=== PATIENT | female | born 1935 | race Caucasian/White ===

== ENCOUNTER → 2016-10-10 | Outpatient (CLI) | payer MEDICARE, OTHER ==
[~2016-10-10] MED LIST: AMIT8CAP6 PO; ARIP1TAB12 PO; CALC1TAB53 PO; CALC625 PO; CENTTAB9 PO; CIPR-9 PO; CYAN1000P; CYAN1000P IM; ESTR.3 PO; ETOD400T PO; FIBE625T10 PO; FURO20 PO; FURO40TA PO; HUMI20KI SQ; HUMI40KI SC; KLOR20TA6 PO; LACTPOW; LEVO.075 PO; MELO7.5S PO; MIRA33504 PO; MIRT1TAB PO; ONETAB13; OYST500T77 PO; POLY119S PO; POTA75TA; POTA75TA2; QUET1TAB65 PO; REME15TA PO; SLOWTAB PO; URIB118C PO; VIIB20TA PO; VIIB40TA PO; WELC625T2 PO; ZETI10TA5 PO; ZIPR40 PO; ZOLP1SUB2 SL
[2016-10-10 16:44] LABS: BICARBONATE 27.2 MEQ/L (21.0-32.0); POTASSIUM 4.7 MEQ/L (3.5-5.1)
== END ==
LOC: PLAB 12:40
PROVIDERS: ATTEND Family Medicine
DX: R60.9 Edema, unspecified (principal); R30.0 Dysuria
CPT/HCPCS: 36415; 80048

== ENCOUNTER 2016-10-21 20:09 | Emergency (ER) | payer MEDICARE, OTHER ==
[~2016-10-21] VITALS: Ht 167.6 cm; Wt 90.0 kg
[~2016-10-21 20:09] MED LIST changes: -ARIP1TAB12 PO; -CALC1TAB53 PO; -CIPR-9 PO; -CYAN1000P IM; -FIBE625T10 PO; -FURO40TA PO; -HUMI20KI SQ; -LACTPOW; -MIRA33504 PO; -MIRT1TAB PO; -ONETAB13; -POTA75TA; -POTA75TA2; -URIB118C PO; -VIIB40TA PO; -ZOLP1SUB2 SL
[2016-10-21 20:20] VITALS: RESP 18; O2SAT 98
[2016-10-21 20:22] VITALS: BP 160/62; PULSE 94; RESP 18; TEMP 98.1; O2SAT 99
[2016-10-21] MEDS ORDERED: SODIUM CHLORIDE 0.9% FLUSH 5 ML FLUSH IVF PRN (20:45)
--- NOTE | 2016-10-21 20:52 | PD ---
HPI . Right side pain Chief Complaint: Edema Time Seen by Provider: 20:36 Travel History International Travel<30 days: No Contact w/Intl Traveler<30days: No Traveled to known affect area: No History of Present Illness HPI The patient presents with several complaints. Her chief complaint to me was right side pain. It started today. It hurts to move. She states that she feels unusually cold. She denies any associated fever, vomiting, appetite change. She does report difficulty passing her urine today. She reports hesitancy. She further reports a recent history of impaction. She states that she was disimpacted earlier this week. She also states a new diagnosis of lymphedema. [facility] Past Medical History Arthritis: Yes Asthma: Yes Autoimmune Disease: No Anxiety: Yes Depression: Yes Heart Rhythm Problems: Yes (MITRAL VALVE PROLAPSE) Cancer: No Cardiovascular Problems: Yes High Cholesterol: Yes Chemotherapy: No Chest Pain: Yes (this admit) Congestive Heart Failure: No COPD: No Cerebrovascular Accident: No Diminished Hearing: No Endocrine: No GERD: No Genitourinary: Yes Hiatal Hernia: No Immune Disorder: No Kidney Stones: Yes (3 or 4 months ago) Medical other: Yes (LYMPHADEMA) Neurologic: Yes (SPINAL STENOSIS) Psychiatric: Yes Reproductive: No Respiratory: Yes Migraines: No Radiation Therapy: No Renal Failure: No Seizures: No Sickle Cell Disease: No Sleep Apnea: No Thyroid Disease: Yes (HYPOTHYROIDISM) Ulcer: No Tetanus Vaccination: Unknown Influenza Vaccination: Yes ?: Not Menopausal: Yes Past Surgical History AICD: No Appendectomy: Yes Arteriovenous Shunt: No Cardiac Surgery: No Genitourinary Surgery: Yes (BLADDER SUSPENSION) Gynecologic Surgery: Yes (BLADDER SUSPENSION) Hysterectomy: Yes Insulin Pump: No Joint Replacement: Yes (BILATERAL KNEE) Neurologic Surgery: No Pacemaker: No Thoracic Surgery: No Tonsillectomy: Yes Other Surgery: Yes Social History Alcohol Use: No Tobacco Use: No Substance Use: No Allergies-Medications (Allergen,Severity, Reaction): Coded Allergies: Aspirin (Verified Allergy, Intermediate, Hives, 10/21/16) Cortisone (Verified Allergy, Mild, "IT MAKES ME NUTS", 10/21/16) Reported Meds & Prescriptions Reported Meds & Active Scripts Active Reported Mirtazapine 7.5 Mg Tab 7.5 Mg PO HS Zolpidem (Zolpidem Tartrate) 1.75 Mg Sub 1.75 Mg SL HS PRN Aripiprazole 10 Mg Tab 10 Mg PO DAILY Etodolac 400 Mg Tab 400 Mg PO BID Take with food. Welchol (Colesevelam HCl) 625 Mg Tab 1,875 Mg PO BID Zetia (Ezetimibe) 10 Mg Tab 10 Mg PO DAILY Potassium 75 Mg Tab 40 Premarin (Estrogens Conjugated) 0.3 Mg Tab 0.3 Mg PO DAILY Synthroid (Levothyroxine Sodium) 75 Mcg Tab 75 Mcg PO DAILY Fiber Tabs (Calcium Polycarbophil) 625 Mg Tab 625 Mg PO BID PRN Miralax Powder (Polyethylene Glycol 3350 Powder) 17 Gm Powd Gm PO DAILY Mix and dissolve one measuring cap-ful (17 grams) in water or juice. Humira 2-Pack Inj (Adalimumab 2-Pack Inj) 20 Mg/0.4 Ml Syr 20 Mg SQ DIRECTED Amitiza (Lubiprostone) 8 Mcg Cap 24 Mcg PO BID Furosemide 40 Mg Tab 40 Mg PO EVERY OTHER DAY Viibryd (Vilazodone) 40 Mg Tab 40 Mg PO DAILY Review of Systems General / Constitutional: Positive: Chills Gastrointestinal: Positive: Abdominal Pain, Constipation, No: Nausea, Vomiting , Loss of Appetite Genitourinary: Positive: Hesitancy Musculoskeletal: Positive: Edema Physical Exam Narrative GENERAL: Elderly woman with a flat affect. SKIN: Warm and dry. She's got a Band-Aid on her nose. HEAD: Atraumatic. Normocephalic. EYES: Pupils equal and round. ENT: No nasal bleeding or discharge. Mucous membranes pink and moist. NECK: Trachea midline. Neck is supple. CARDIOVASCULAR: Regular rate and rhythm. Heart sounds are normal. RESPIRATORY: No accessory muscle use. Lungs are clear with full air movement throughout. GASTROINTESTINAL: Abdomen soft. She does have some tenderness in her right lower abdomen. Nondistended. MUSCULOSKELETAL: No obvious deformities. Long ANNABELLE hose in place. NEUROLOGICAL: Awake and alert. No obvious cranial nerve deficits. Motor grossly within normal limits. Normal speech. PSYCHIATRIC: Appropriate mood. Flat affect; insight and judgment normal. Data Data Last Documented VS Vital Signs Date Time Temp Pulse Resp B/P Pulse Ox O2 Delivery O2 Flow Rate FiO2 10/21/16 20:39 94 18 99 Room Air 10/21/16 20:22 98.1 160/62 Orders Complete Blood Count With Diff (10/21/16 20:42) Comprehensive Metabolic Panel (10/21/16 20:42) Lactic Acid (10/21/16 20:42) Urinalysis - C+S If Indicated (10/21/16 20:42) Ct Abd/Pel W Iv Contrast(Rout) (10/21/16 20:42) Iv Access Insert/Monitor (10/21/16 20:42) Ecg Monitoring (10/21/16 20:42) Oximetry (10/21/16 20:42) Sodium Chloride 0.9% Flush (Ns Flush) (10/21/16 20:45) Electrocardiogram (10/21/16 20:42) Chest, Single Ap (10/21/16 20:42) B-Type Natriuretic Peptide (10/21/16 20:42) Cath For Specimen (10/21/16 20:42) Iohexol 350 Inj (Omnipaque 350 Inj) (10/21/16 22:46) Labs Laboratory Tests Test 10/21/16 10/21/16 20:30 21:35 Urine Color YELLOW Urine Turbidity CLEAR Urine pH 6.0 Urine Specific [place] 1.015 Urine Protein NEG mg/dL Urine Glucose (UA) NEG mg/dL Urine Ketones NEG mg/dL Urine Occult Blood NEG Urine Nitrite NEG Urine Bilirubin NEG Urine Leukocyte Esterase NEG Urine RBC 0-2 /hpf Urine WBC 0-2 /hpf Urine Squamous Epithelial 6-8 /hpf Cells Urine Bacteria FEW /hpf Microscopic Urinalysis Comment CULT NOT INDICATED White Blood Count 4.8 TH/MM3 Red Blood Count 4.71 MIL/MM3 Hemoglobin 14.4 GM/DL Hematocrit 42.7 % Mean Corpuscular Volume 90.7 FL Mean Corpuscular Hemoglobin 30.6 PG Mean Corpuscular Hemoglobin 33.8 % Concent Red Cell Distribution Width 12.5 % Platelet Count 119 TH/MM3 Mean Platelet Volume 12.5 FL Neutrophils (%) (Auto) 57.3 % Lymphocytes (%) (Auto) 27.6 % Monocytes (%) (Auto) 13.0 % Eosinophils (%) (Auto) 1.4 % Basophils (%) (Auto) 0.7 % Neutrophils # (Auto) 2.8 TH/MM3 Lymphocytes # (Auto) 1.3 TH/MM3 Monocytes # (Auto) 0.6 TH/MM3 Eosinophils # (Auto) 0.1 TH/MM3 Basophils # (Auto) 0.0 TH/MM3 CBC Comment DIFF FINAL Differential Comment Sodium Level 144 MEQ/L Potassium Level 3.9 MEQ/L Chloride Level 109 MEQ/L Carbon Dioxide Level 28.6 MEQ/L Anion Gap 6 MEQ/L Blood Urea Nitrogen 17 MG/DL Creatinine 0.85 MG/DL Estimat Glomerular Filtration 65 ML/MIN Rate Random Glucose 89 MG/DL Lactic Acid Level 0.9 mmol/L Calcium Level 9.8 MG/DL Total Bilirubin 0.3 MG/DL Aspartate Amino Transf 27 U/L (AST/SGOT) Alanine Aminotransferase 35 U/L (ALT/SGPT) Alkaline Phosphatase 56 U/L B-Type Natriuretic Peptide 53 PG/ML Total Protein 8.5 GM/DL Albumin 4.0 GM/DL [facility] Medical Decision Making Medical Screen Exam Complete: Yes Emergency Medical Condition: Yes Interpretation(s) EKG shows a normal sinus rhythm. No ST segment elevation or depression. Poor R -wave progression. Differential Diagnosis Differential diagnosis of abdominal pain includes but is not limited to gastritis, pancreatitis, hepatitis, gastroenteritis, gallbladder disease, constipation, urinary retention, UTI, peptic ulcer disease, diverticulitis or appendicitis Narrative Course Allergies Coded Allergies Type Severity Reaction Last Updated Verified Aspirin Allergy Intermediate Hives 10/21/16 Yes Cortisone Allergy Mild "IT MAKES ME NUTS" 10/21/16 Yes Active Scripts Medications Dose Route/Sig Days Date Category Dose Instructions Mirtazapine 7.5 Mg Tab 7.5 Mg PO HS 10/21/16 Reported Zolpidem (Zolpidem Tartrate) 1.75 Mg Sub 1.75 Mg SL HS PRN 10/21/16 Reported Aripiprazole 10 Mg Tab 10 Mg PO DAILY 10/21/16 Reported Etodolac 400 Mg Tab 400 Mg PO BID 10/21/16 Reported Take with food. Welchol (Colesevelam HCl) 625 Mg Tab 1,875 Mg PO BID 10/21/16 Reported Zetia (Ezetimibe) 10 Mg Tab 10 Mg PO DAILY 10/21/16 Reported Potassium 75 Mg Tab 40 10/21/16 Reported Premarin (Estrogens Conjugated) 0.3 Mg Tab 0.3 Mg PO DAILY 10/21/16 Reported Synthroid (Levothyroxine Sodium) 75 Mcg Tab 75 Mcg PO DAILY 10/21/16 Reported Fiber Tabs (Calcium Polycarbophil) 625 Mg Tab 625 Mg PO BID PRN 10/21/16 Reported Miralax Powder (Polyethylene Glycol 3350 Powder) 17 Gm Powd Gm PO DAILY 10/21/16 Reported Mix and dissolve one measuring cap-ful (17 grams) in water or juice. Humira 2-Pack Inj (Adalimumab 2-Pack Inj) 20 Mg/0.4 Ml Syr 20 Mg SQ DIRECTED 10/21/16 Reported Amitiza (Lubiprostone) 8 Mcg Cap 24 Mcg PO BID 10/21/16 Reported Furosemide 40 Mg Tab 40 Mg PO EVERY OTHER DAY 10/21/16 Reported Viibryd (Vilazodone) 40 Mg Tab 40 Mg PO DAILY 10/21/16 Reported Patient presents with multiple issues. The most worrisome to me is the abdominal pain. Last Impressions Chest X-Ray 10/21/162041 Signed Impressions: Service Date/Time: Friday, October 21, 2016 20:47 - CONCLUSION: The lungs are clear. Dat Zaragoza MD CBC & BMP Diagram 10/21/16 21:35 Chest x-ray was independently viewed by me. UA is negative. Last Impressions Chest X-Ray 10/21/162041 Signed Impressions: Service Date/Time: Friday, October 21, 2016 20:47 - CONCLUSION: The lungs are clear. Dat Zaragoza MD Abdomen/Pelvis CT 10/21/162041 Signed Impressions: Service Date/Time: Friday, October 21, 2016 22:25 - CONCLUSION: 1. 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 2. No dilated loops of small or large bowel. Dat Zaragoza MD Patient has no evidence of intra-abdominal catastrophe. She has no evidence of pulmonary edema. She should continue her current therapy. Diagnosis Primary Impression: Peripheral edema Additional Impression: Abdominal pain Qualified Code: R10.31 - Right lower quadrant abdominal pain Patient Instructions: General Instructions, Leg Edema (ED) Disposition: 01 DISCHARGE HOME Condition: Stable Rosemarie Alicea MD Oct 21, 2016 20:52
[2016-10-21] MEDS ORDERED: ETOD400T PO (20:57)
[2016-10-21] MEDS ORDERED: HUMI20KI SQ (20:57)
[2016-10-21] MEDS ORDERED: POTA75TA2 (20:57)
[2016-10-21] MEDS ORDERED: WELC625T2 PO (20:57)
[2016-10-21] MEDS ORDERED: MIRA33504 PO (20:57)
[2016-10-21] MEDS ORDERED: FIBE625T10 PO (20:57)
[2016-10-21] MEDS ORDERED: VIIB40TA PO (20:57)
[2016-10-21] MEDS ORDERED: ZETI10TA5 PO (20:57)
[2016-10-21] MEDS ORDERED: LEVO.075 PO (20:57)
[2016-10-21] MEDS ORDERED: MIRT1TAB PO (20:57)
[2016-10-21] MEDS ORDERED: ESTR.3 PO (20:57)
[2016-10-21] MEDS ORDERED: AMIT8CAP6 PO (20:57)
[2016-10-21] MEDS ORDERED: ZOLP1SUB2 SL (20:57)
[2016-10-21] MEDS ORDERED: FURO40TA PO (20:57)
[2016-10-21] MEDS ORDERED: ARIP1TAB12 PO (20:57)
[2016-10-21] MEDS ORDERED: POTA75TA (20:57)
--- NOTE | 2016-10-21 21:04 | RADHPO ---
EXAM DATE/TIME: 10/21/2016 20:47 [facility] COMPARISON: CHEST SINGLE AP, January 06, 2016, 14:43. INDICATIONS : Pain on the right side of body. MEDICAL HISTORY : Renal calculi. SURGICAL HISTORY : Hysterectomy. Appendectomy. Tonsillectomy. ENCOUNTER: Initial ACUITY: 1 day PAIN SCORE: 8/10 LOCATION: Right thorax. FINDINGS: A single view of the chest demonstrates the lungs to be symmetrically aerated without evidence of mas s, infiltrate or effusion. No evidence of pneumothorax. The cardiomediastinal contours are unremark able. Osseous structures are intact. CONCLUSION: The lungs are clear. Dat Zaragoza MD on October 21, 2016 at 21:02 Board Certified Radiologist. This report was verified electronically.
[2016-10-21 21:46] LABS: BLOOD, URINE NEG (NEG); GLUCOSE,URINE NEG (NEG); KETONE, URINE NEG (NEG); NITRITE,URINE NEG (NEG)
[2016-10-21 21:48] LABS: AUTOMATED NEUTROPHIL # 2.8 TH/MM3 (1.8-7.7); BASOPHIL % 0.7 % (0.0-2.0); EOSINOPHIL # 0.1 TH/MM3 (0-0.4); EOSINOPHIL % 1.4 % (0.0-4.0); HEMATOCRIT 42.7 % (35.0-46.0); LYMPH % 27.6 % (9.0-44.0); LYMPHOCYTE # 1.3 TH/MM3 (1.0-4.8); MEAN CELL VOLUME 90.7 FL (80.0-100.0); MEAN CORPUSCULAR HEMOGLOBIN 30.6 PG (27.0-34.0); MEAN CORPUSCULAR HGB CONC 33.8 % (32.0-36.0); NEUT % 57.3 % (16.0-70.0); PLATELET COUNT 119 TH/MM3 (150-450); RED BLOOD COUNT 4.71 MIL/MM3 (4.00-5.30); RED CELL DISTRIBUTION WIDTH 12.5 % (11.6-17.2); WHITE BLOOD COUNT 4.8 TH/MM3 (4.0-11.0)
[2016-10-21 21:49] LABS: HEMO FLAGS DIFF FINAL
[2016-10-21 21:52] LABS: URINE COLOR YELLOW (YELLW/STRAW)
[2016-10-21 21:53] LABS: BACTERIA, URINE FEW /hpf; COMMENT (UR) CULT NOT INDICATED; CULTURE IF INDICATED CULT NOT INDICATED; RBC, URINE 0-2 /hpf (0-3); WBC, URINE 0-2 /hpf (0-5)
[2016-10-21 21:54] LABS: CHLORIDE 109 MEQ/L (98-107); POTASSIUM 3.9 MEQ/L (3.5-5.1); SODIUM (NA) 144 MEQ/L (136-145)
[2016-10-21 21:57] LABS: ANION GAP 6 MEQ/L (5-15); BICARBONATE 28.6 MEQ/L (21.0-32.0); BLOOD UREA NITROGEN 17 MG/DL (7-18)
[2016-10-21 22:00] LABS: ALT (GPT) 35 U/L (10-53)
[2016-10-21 22:01] LABS: AST (GOT) 27 U/L (15-37); GLOMERULAR FILTRATION RATE 65 ML/MIN (>89)
[2016-10-21 22:02] LABS: TOTAL BILIRUBIN ADULT 0.3 MG/DL (0.2-1.0)
[2016-10-21 22:03] LABS: ALKALINE PHOSPHATASE 56 U/L (45-117)
[2016-10-21 22:40] VITALS: BP 122/52; PULSE 81; RESP 18; O2SAT 97
[2016-10-21] MEDS ORDERED: IOHEXOL 350 MG/ML 10 ML VIAL (for RAD DIAG) IV ONE (22:46)
--- NOTE | 2016-10-21 23:04 | RADHPO ---
EXAM DATE/TIME: 10/21/2016 22:25 [facility] COMPARISON: No previous studies available for comparison. INDICATIONS : Right sided abdominal pain. IV CONTRAST: 96 cc Omnipaque 350 (iohexol) IV ORAL CONTRAST: No oral contrast ingested. RADIATION DOSE: 19.16 CTDIvol (mGy) MEDICAL HISTORY : Renal calculi. Mitral valve prolapse. SURGICAL HISTORY : Appendectomy. Hysterectomy. ENCOUNTER: Initial ACUITY: 1 day PAIN SCALE: 6/10 LOCATION: Right abdomen. TECHNIQUE: Volumetric scanning of the abdomen and pelvis was performed. Using automated exposure control and ad justment of the mA and/or kV according to patient size, radiation dose was kept as low as reasonably achievable to obtain optimal diagnostic quality images. FINDINGS: LOWER LUNGS: The visualized lower lungs are clear. LIVER: Homogeneous density without lesion. There is no dilation of the biliary tree. No calcified gallston es. SPLEEN: Normal size without lesion. PANCREAS: Within normal limits. KIDNEYS: Normal in size and shape. There is no mass or hydronephrosis. In the lower pole collecting system l eft kidney, there is a elongated calcification measuring 5 x 15 mm without dilation of the collecting system. ADRENAL GLANDS: Within normal limits. VASCULAR: There is no aortic aneurysm. BOWEL/MESENTERY: No dilated loops of small or large bowel. ABDOMINAL WALL: Within normal limits. RETROPERITONEUM: There is no lymphadenopathy. BLADDER: No wall thickening or mass. REPRODUCTIVE: Within normal limits. INGUINAL: There is no lymphadenopathy or hernia. MUSCULOSKELETAL: Within normal limits for patient age. CONCLUSION: 1. 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 2. No dilated loops of small or large bowel. Dat Zaragoza MD on October 21, 2016 at 22:58 Board Certified Radiologist. This report was verified electronically.
[2016-10-21 23:35] VITALS: BP 119/60; PULSE 79; RESP 18; O2SAT 97
--- NOTE | 2016-10-22 13:15 | EKG ---
Date Performed: 10/21/2016 Time Performed: 21:11:48 PTAGE: 80 years EKG: Sinus rhythm Low QRS voltages in precordial leads Compared to prior tracing no significant change Borderline ECG PREVIOUS TRACING : 01/07/2016 09.15 DOCTOR: Сергей Guy Interpretating Date/Time 10/22/2016 13:12:23
== END 2016-10-21 23:59 | disposition home or self-care (01) ==
LOC: PHED 20:09
DX: R60.0 Localized edema (principal); R10.31 Right lower quadrant pain; R39.11 Hesitancy of micturition; J45.909 Unspecified asthma, uncomplicated; E78.00 Pure hypercholesterolemia, unspecified; R94.31 Abnormal electrocardiogram [ECG] [EKG]
CPT/HCPCS: 71010; 74177; 80053; 81001; 83605; 83880; 85025; 93005; 99284; Q9967

== ENCOUNTER 2016-11-04 12:53 | Emergency (ER) | payer MEDICARE, OTHER ==
[~2016-11-04 12:53] MED LIST changes: +ARIP1TAB12 PO; -CALC625 PO; -CENTTAB9 PO; -CYAN1000P; +FIBE625T10 PO; -FURO20 PO; +FURO40TA PO; +HUMI20KI SQ; -HUMI40KI SC; -KLOR20TA6 PO; -MELO7.5S PO; +MIRA33504 PO; +MIRT1TAB PO; -OYST500T77 PO; -POLY119S PO; +POTA75TA; -QUET1TAB65 PO; -REME15TA PO; -SLOWTAB PO; -VIIB20TA PO; +VIIB40TA PO; -ZIPR40 PO; +ZOLP1SUB2 SL
[2016-11-04 13:13] VITALS: BP 152/68; PULSE 103; RESP 18; TEMP 98.4; O2SAT 97
[2016-11-04] MEDS ORDERED: SODIUM CHLORID 0.9% 500 ML INJ 500 ML IV ONE (13:15)
[2016-11-04] MEDS ORDERED: SODIUM CHLORIDE 0.9% FLUSH 5 ML FLUSH IVF PRN (13:15)
[2016-11-04] MEDS ORDERED: ONDANSETRON HCL 4 MG/2 ML VIAL IVP ONE (13:15)
--- NOTE | 2016-11-04 13:18 | PD ---
HPI Chief Complaint: General Weakness Time Seen by Provider: 13:01 Travel History International Travel<30 days: No Contact w/Intl Traveler<30days: No Traveled to known affect area: No History of Present Illness HPI The patient is a 80-year-old female who presents to the emergency department via EMS from [place], [place] for generalized weakness. The patient has a history of generalized weakness, is currently "homebound "according to the and receives home health care. The patient's primary physician is Dr. Kathy Scales. The patient is able to ambulate with the assistance of a walker at home, but has difficulty getting from a sitting to standing position. The patient states she was using the restroom at one end of the house, her was on the other end of the house, and she was unable to get up off of the toilet. The patient states she finally called out for her was able to stand, however, began "shaking "with her upper and lower extremities. The patient felt like she was going to fall and her had to help her to the ground. Initially, fire rescue was called to the house for a lift assist, however, they stated the patient needed to be evaluated secondary to her generalized weakness. The patient does complain of mild dizziness and lightheadedness, worse with sitting upright and standing and slightly improved with sitting and lying supine. The patient states she has been eating and drinking without difficulty, but has been taking Lasix recently for lower extremity edema. The patient denies any headache, chest pain, shortness of breath, but does note intermittent nausea. The patient also notes intermittent right sided flank pain secondary to history of large kidney stone. PFSH Past Medical History Arthritis: Yes Asthma: Yes Autoimmune Disease: No Anxiety: Yes Depression: Yes Heart Rhythm Problems: Yes (MITRAL VALVE PROLAPSE) Cancer: No Cardiovascular Problems: Yes (MITRAL VALVE PROLAPSE) High Cholesterol: Yes Chemotherapy: No Chest Pain: Yes (this admit) Congestive Heart Failure: No COPD: No Cerebrovascular Accident: No Diminished Hearing: No Endocrine: No GERD: No Genitourinary: Yes Hiatal Hernia: No Immune Disorder: No Kidney Stones: Yes (10 MM LEFT KIDNEY) Medical other: Yes (LYMPHEDEMA) Neurologic: Yes (SPINAL STENOSIS) Psychiatric: Yes Reproductive: No Respiratory: Yes Migraines: No Radiation Therapy: No Renal Failure: No Seizures: No Sickle Cell Disease: No Sleep Apnea: No Thyroid Disease: Yes (HYPOTHYROIDISM) Ulcer: No Menopausal: Yes Past Surgical History AICD: No Appendectomy: Yes Arteriovenous Shunt: No Cardiac Surgery: No Genitourinary Surgery: Yes (BLADDER SUSPENSION) Gynecologic Surgery: Yes (BLADDER SUSPENSION) Hysterectomy: Yes (TOTAL) Insulin Pump: No Joint Replacement: Yes (BILATERAL KNEE) Neurologic Surgery: No Pacemaker: No Thoracic Surgery: No Tonsillectomy: Yes Other Surgery: Yes Social History Alcohol Use: No Tobacco Use: No Substance Use: No Allergies-Medications (Allergen,Severity, Reaction): Coded Allergies: Aspirin (Verified Allergy, Intermediate, Hives, 11/04/16) Cortisone (Verified Allergy, Mild, "IT MAKES ME NUTS", 11/04/16) Reported Meds & Prescriptions Reported Meds & Active Scripts Active Reported Mirtazapine 7.5 Mg Tab 7.5 Mg PO HS Zolpidem (Zolpidem Tartrate) 1.75 Mg Sub 1.75 Mg SL HS PRN Aripiprazole 10 Mg Tab 10 Mg PO DAILY Etodolac 400 Mg Tab 400 Mg PO BID Take with food. Welchol (Colesevelam HCl) 625 Mg Tab 1,875 Mg PO BID Zetia (Ezetimibe) 10 Mg Tab 10 Mg PO DAILY Potassium 75 Mg Tab 40 Premarin (Estrogens Conjugated) 0.3 Mg Tab 0.3 Mg PO DAILY Synthroid (Levothyroxine Sodium) 75 Mcg Tab 75 Mcg PO DAILY Fiber Tabs (Calcium Polycarbophil) 625 Mg Tab 625 Mg PO BID PRN Miralax Powder (Polyethylene Glycol 3350 Powder) 17 Gm Powd Gm PO DAILY Mix and dissolve one measuring cap-ful (17 grams) in water or juice. Humira 2-Pack Inj (Adalimumab 2-Pack Inj) 20 Mg/0.4 Ml Syr 20 Mg SQ DIRECTED Amitiza (Lubiprostone) 8 Mcg Cap 24 Mcg PO BID Furosemide 40 Mg Tab 40 Mg PO EVERY OTHER DAY Viibryd (Vilazodone) 40 Mg Tab 40 Mg PO DAILY Review of Systems Except as stated in HPI: all other systems reviewed are Neg General / Constitutional: No: Fever HENT: Positive: Lightheadedness Cardiovascular: No: Chest Pain or Discomfort Respiratory: No: Shortness of Breath Gastrointestinal: Positive: Nausea, No: Vomiting, Diarrhea, Abdominal Pain Genitourinary: Positive: Flank Pain (occasional right sided flank pain secondary to history of kidney stone) Musculoskeletal: Positive: Weakness, Edema Skin: No Rash Neurologic: Positive: Weakness, Dizziness Physical Exam Narrative GENERAL: Awake, alert, pleasant 80 year-old female who appears her stated age and is in no acute respiratory distress. SKIN: Warm and dry. HEAD: Atraumatic. Normocephalic. EYES: Pupils equal and round. No scleral icterus. No injection or drainage. ENT: No nasal bleeding or discharge. Slightly dry mucous membranes. NECK: Trachea midline. No JVD. CARDIOVASCULAR: Regular, tachycardic with a heart rate of 102. RESPIRATORY: No accessory muscle use. Clear to auscultation. Breath sounds equal bilaterally. GASTROINTESTINAL: Abdomen soft, non-tender, nondistended. No rebound tenderness. MUSCULOSKELETAL: Well-healed scar over the knees bilaterally. Mild chronic venous stasis changes lower extremities with mild edema. NEUROLOGICAL: Awake and alert. No obvious cranial nerve deficits. Motor grossly within normal limits. Normal speech. PSYCHIATRIC: Appropriate mood and affect; insight and judgment normal. Data Data Last Documented VS Vital Signs Date Time Temp Pulse Resp B/P Pulse Ox O2 Delivery O2 Flow Rate FiO2 11/04/16 13:59 95 18 131/59 102 18 134/60 101 18 140/63 11/04/16 13:13 97 Room Air 11/04/16 13:13 98.4 Orders Electrocardiogram (11/04/16 13:11) Complete Blood Count With Diff (11/04/16 13:11) Comprehensive Metabolic Panel (11/04/16 13:11) Magnesium (Mg) (11/04/16 13:11) Ckmb (Isoenzyme) Profile (11/04/16 13:11) Troponin I (11/04/16 13:11) Urinalysis - C+S If Indicated (11/04/16 13:11) Chest, Single Ap (11/04/16 13:11) Ecg Monitoring (11/04/16 13:11) Iv Access Insert/Monitor (11/04/16 13:11) Oximetry (11/04/16 13:11) Ondansetron Inj (Zofran Inj) (11/04/16 13:15) Sodium Chloride 0.9% Flush (Ns Flush) (11/04/16 13:15) Orthostatic Vital Signs (11/04/16 13:11) Sodium Chlorid 0.9% 500 Ml Inj (Ns 500 M (11/04/16 13:15) Cath For Specimen (11/04/16 13:14) Lactic Acid (11/04/16 13:19) Labs Laboratory Tests Test 11/04/16 11/04/16 11/04/16 13:16 13:30 13:31 White Blood Count 5.2 TH/MM3 Red Blood Count 4.03 MIL/MM3 Hemoglobin 12.4 GM/DL Hematocrit 36.6 % Mean Corpuscular Volume 90.8 FL Mean Corpuscular Hemoglobin 30.8 PG Mean Corpuscular Hemoglobin 33.9 % Concent Red Cell Distribution Width 13.4 % Platelet Count 106 TH/MM3 Mean Platelet Volume 11.7 FL Neutrophils (%) (Auto) 62.8 % Lymphocytes (%) (Auto) 23.9 % Monocytes (%) (Auto) 11.4 % Eosinophils (%) (Auto) 1.5 % Basophils (%) (Auto) 0.4 % Neutrophils # (Auto) 3.2 TH/MM3 Lymphocytes # (Auto) 1.2 TH/MM3 Monocytes # (Auto) 0.6 TH/MM3 Eosinophils # (Auto) 0.1 TH/MM3 Basophils # (Auto) 0.0 TH/MM3 CBC Comment DIFF FINAL Differential Comment Sodium Level 141 MEQ/L Potassium Level 4.2 MEQ/L Chloride Level 108 MEQ/L Carbon Dioxide Level 25.5 MEQ/L Anion Gap 8 MEQ/L Blood Urea Nitrogen 15 MG/DL Creatinine 0.85 MG/DL Estimat Glomerular Filtration 65 ML/MIN Rate Random Glucose 94 MG/DL Calcium Level 9.1 MG/DL Magnesium Level 2.0 MG/DL Total Bilirubin 0.5 MG/DL Aspartate Amino Transf 19 U/L (AST/SGOT) Alanine Aminotransferase 26 U/L (ALT/SGPT) Alkaline Phosphatase 48 U/L Total Creatine Kinase 43 U/L Troponin I LESS THAN 0.02 NG/ML Total Protein 7.2 GM/DL Albumin 3.6 GM/DL Urine Color LIGHT-YELLOW Urine Turbidity CLEAR Urine pH 7.0 Urine Specific [place] 1.006 Urine Protein NEG mg/dL Urine Glucose (UA) NEG mg/dL Urine Ketones NEG mg/dL Urine Occult Blood NEG Urine Nitrite NEG Urine Bilirubin NEG Urine Urobilinogen LESS THAN 2.0 MG/DL Urine Leukocyte Esterase NEG Urine RBC 1 /hpf Urine WBC 1 /hpf Urine Squamous Epithelial <1 /hpf Cells Urine Bacteria OCC /hpf Urine Hyaline Casts 5 /lpf Microscopic Urinalysis Comment CULT NOT INDICATED Lactic Acid Level 1.3 mmol/L MDM Medical Decision Making Medical Screen Exam Complete: Yes Emergency Medical Condition: Yes Medical Record Reviewed: Yes Interpretation(s) EKG reveals normal sinus rhythm with a rate in 93. No ischemic changes or ectopy noted. Last Impressions Chest X-Ray 11/04/16 1311 Signed Impressions: Service Date/Time: Friday, November 04, 2016 13:21 - CONCLUSION: No acute disease. Slight elevation left hemidiaphragm. Cody Buckley MD Laboratory Tests Test 11/04/16 11/04/16 11/04/16 13:16 13:30 13:31 White Blood Count 5.2 TH/MM3 Red Blood Count 4.03 MIL/MM3 Hemoglobin 12.4 GM/DL Hematocrit 36.6 % Mean Corpuscular Volume 90.8 FL Mean Corpuscular Hemoglobin 30.8 PG Mean Corpuscular Hemoglobin 33.9 % Concent Red Cell Distribution Width 13.4 % Platelet Count 106 TH/MM3 Mean Platelet Volume 11.7 FL Neutrophils (%) (Auto) 62.8 % Lymphocytes (%) (Auto) 23.9 % Monocytes (%) (Auto) 11.4 % Eosinophils (%) (Auto) 1.5 % Basophils (%) (Auto) 0.4 % Neutrophils # (Auto) 3.2 TH/MM3 Lymphocytes # (Auto) 1.2 TH/MM3 Monocytes # (Auto) 0.6 TH/MM3 Eosinophils # (Auto) 0.1 TH/MM3 Basophils # (Auto) 0.0 TH/MM3 CBC Comment DIFF FINAL Differential Comment Sodium Level 141 MEQ/L Potassium Level 4.2 MEQ/L Chloride Level 108 MEQ/L Carbon Dioxide Level 25.5 MEQ/L Anion Gap 8 MEQ/L Blood Urea Nitrogen 15 MG/DL Creatinine 0.85 MG/DL Estimat Glomerular Filtration 65 ML/MIN Rate Random Glucose 94 MG/DL Calcium Level 9.1 MG/DL Magnesium Level 2.0 MG/DL Total Bilirubin 0.5 MG/DL Aspartate Amino Transf 19 U/L (AST/SGOT) Alanine Aminotransferase 26 U/L (ALT/SGPT) Alkaline Phosphatase 48 U/L Total Creatine Kinase 43 U/L Troponin I LESS THAN 0.02 NG/ML Total Protein 7.2 GM/DL Albumin 3.6 GM/DL Urine Color LIGHT-YELLOW Urine Turbidity CLEAR Urine pH 7.0 Urine Specific [place] 1.006 Urine Protein NEG mg/dL Urine Glucose (UA) NEG mg/dL Urine Ketones NEG mg/dL Urine Occult Blood NEG Urine Nitrite NEG Urine Bilirubin NEG Urine Urobilinogen LESS THAN 2.0 MG/DL Urine Leukocyte Esterase NEG Urine RBC 1 /hpf Urine WBC 1 /hpf Urine Squamous Epithelial <1 /hpf Cells Urine Bacteria OCC /hpf Urine Hyaline Casts 5 /lpf Microscopic Urinalysis Comment CULT NOT INDICATED Lactic Acid Level 1.3 mmol/L Differential Diagnosis Differential diagnosis includes dehydration, orthostatic hypotension, vasovagal syncope, arrhythmia, electrolyte abnormality, deconditioning, UTI, pneumonia, sepsis. Narrative Course IV was established, labs were drawn and sent, and the patient was placed on cardiac telemetry monitoring and continuous pulse oximetry monitoring. EKG was ordered and interpreted. Chest x-ray was ordered. Orthostatic vital signs were obtained and the patient was administered 500 cc of normal saline. UA was sent to lab. UA was negative. Chest x-ray was clear. White count is normal. Hemoglobin/hematocrit are unremarkable. Patient's heart rate came down to 90 with IV fluids. Patient had improvement of her symptoms. Patient will be discharged home with her , she has home health care nursing that will come to the house on Sunday. She is advised to use the walker and/or wheelchair as needed for mobility around the house. Drink plenty of fluids to stay hydrated. Return if symptoms worsen or progress. Diagnosis Primary Impression: Generalized weakness Additional Impression: Dehydration Patient Instructions: General Instructions Additional Instructions: Use walker or wheelchair to mobilize around the house. Follow-up with home health care on Sunday as scheduled. Return if symptoms worsen or progress. Do not try to stand or ambulate without assistance. Med/Other Pt SpecificInfo: No Change to Meds Disposition: 01 DISCHARGE HOME Condition: Stable Jon Brewer MD Nov 04, 2016 13:18
--- NOTE | 2016-11-04 13:34 | RADRPT ---
EXAM DATE/TIME: 11/04/2016 13:21 [facility] COMPARISON: CHEST SINGLE AP, October 21, 2016, 20:47. INDICATIONS : Generalized weakness resulting in a near fall. MEDICAL HISTORY : Renal Calculi. Asthma. Mitral valve prolapse. SURGICAL HISTORY : Hysterectomy. Appendectomy. Tonsillectomy. ENCOUNTER: Initial ACUITY: 4 - 6 days PAIN SCORE: 0/10 LOCATION: Chest. FINDINGS: A single view of the chest demonstrates the lungs to be symmetrically aerated without evidence of mas s, infiltrate or effusion. Slight elevation left hemidiaphragm. The cardiomediastinal contours are u nremarkable. Osseous structures are intact. CONCLUSION: No acute disease. Slight elevation left hemidiaphragm. Cody Buckley MD on November 04, 2016 at 13:32 Board Certified Radiologist. This report was verified electronically.
[2016-11-04 13:36] LABS: AUTOMATED NEUTROPHIL # 3.2 TH/MM3 (1.8-7.7); BASOPHIL % 0.4 % (0.0-2.0); EOSINOPHIL # 0.1 TH/MM3 (0-0.4); EOSINOPHIL % 1.5 % (0.0-4.0); HEMATOCRIT 36.6 % (35.0-46.0); HEMO FLAGS DIFF FINAL; LYMPH % 23.9 % (9.0-44.0); LYMPHOCYTE # 1.2 TH/MM3 (1.0-4.8); MEAN CELL VOLUME 90.8 FL (80.0-100.0); MEAN CORPUSCULAR HEMOGLOBIN 30.8 PG (27.0-34.0); MEAN CORPUSCULAR HGB CONC 33.9 % (32.0-36.0); MONO % 11.4 % (0.0-8.0); NEUT % 62.8 % (16.0-70.0); PLATELET COUNT 106 TH/MM3 (150-450); RED BLOOD COUNT 4.03 MIL/MM3 (4.00-5.30); RED CELL DISTRIBUTION WIDTH 13.4 % (11.6-17.2); WHITE BLOOD COUNT 5.2 TH/MM3 (4.0-11.0)
[2016-11-04 13:45] LABS: ALT (GPT) 26 U/L (10-53); ANION GAP 8 MEQ/L (5-15); AST (GOT) 19 U/L (15-37); BICARBONATE 25.5 MEQ/L (21.0-32.0); BLOOD UREA NITROGEN 15 MG/DL (7-18); CHLORIDE 108 MEQ/L (98-107); GLOMERULAR FILTRATION RATE 65 ML/MIN (>89); POTASSIUM 4.2 MEQ/L (3.5-5.1); SODIUM (NA) 141 MEQ/L (136-145)
[2016-11-04 13:49] LABS: ALKALINE PHOSPHATASE 48 U/L (45-117); TOTAL BILIRUBIN ADULT 0.5 MG/DL (0.2-1.0)
[2016-11-04 13:49] LABS: BACTERIA, URINE OCC /hpf; BLOOD, URINE NEG (NEG); GLUCOSE,URINE NEG (NEG); HYALINE CAST, URINE 5 /lpf (RARE); KETONE, URINE NEG (NEG); NITRITE,URINE NEG (NEG); SQUAMOUS EPITHELIAL CELL URINE <1 /hpf (0-5); URINE COLOR LIGHT-YELLOW (YELLW/STRAW)
[2016-11-04 13:50] LABS: COMMENT (UR) CULT NOT INDICATED; CULTURE IF INDICATED CULT NOT INDICATED
[2016-11-04 13:59] VITALS: BP_SYST 131; BP_SYST 134; BP_SYST 140; BP_DIAS 59; BP_DIAS 60; BP_DIAS 63; RESP 18
[2016-11-04 13:59] LABS: CREATINE KINASE 43 U/L (26-192)
[2016-11-04 15:10] VITALS: BP 139/62; PULSE 85; RESP 18; O2SAT 98
--- NOTE | 2016-11-05 13:00 | EKG ---
Date Performed: 11/04/2016 Time Performed: 13:25:22 PTAGE: 80 years EKG: Sinus rhythm Compared to prior tracing no significant change NORMAL ECG PREVIOUS TRACING : 10/21/2016 21.11 DOCTOR: Jimmie Miller Interpretating Date/Time 11/05/2016 12:56:09
== END 2016-11-04 16:31 | disposition home or self-care (01) ==
LOC: NEPC 12:53
DX: E86.0 Dehydration (principal); M19.90 Unspecified osteoarthritis, unspecified site; F41.8 Other specified anxiety disorders; E78.00 Pure hypercholesterolemia, unspecified; M48.00 Spinal stenosis, site unspecified; E07.9 Disorder of thyroid, unspecified; Z87.442 Personal history of urinary calculi
CPT/HCPCS: 71010; 80053; 81001; 82550; 83605; 83735; 84484; 85025; 93005; 96361; 96374; 99285; J2405; J7040

== ENCOUNTER → 2016-11-23 | Outpatient (CLI) | payer MEDICARE, OTHER ==
[~2016-11-23] MED LIST changes: +CALC1TAB53 PO; +CIPR-9 PO; +CYAN1000P IM; +LACTPOW; +ONETAB13; +URIB118C PO
[2016-11-23 13:21] LABS: BICARBONATE 27.6 MEQ/L (21.0-32.0); POTASSIUM 4.6 MEQ/L (3.5-5.1)
[2016-11-23 16:08] LABS: BACTERIA, URINE OCC /hpf; BLOOD, URINE SMALL (NEG); CALCIUM OXALATE CRYSTALS,URINE MOD /hpf; GLUCOSE,URINE NEG (NEG); HYALINE CAST, URINE 12 /lpf (RARE); KETONE, URINE NEG (NEG); NITRITE,URINE NEG (NEG); SQUAMOUS EPITHELIAL CELL URINE 5 /hpf (0-5); URINE COLOR YELLOW (YELLW/STRAW)
== END ==
LOC: PLAB 11:26
PROVIDERS: ATTEND Family Medicine
DX: R60.9 Edema, unspecified (principal); N39.0 Urinary tract infection, site not specified; R82.90 Unspecified abnormal findings in urine
CPT/HCPCS: 36415; 80048; 81001

== ENCOUNTER 2017-02-02 08:37 | Emergency (ER) | payer MEDICARE, OTHER ==
[~2017-02-02 08:37] MED LIST changes: -CALC1TAB53 PO; -CIPR-9 PO; -CYAN1000P IM; -LACTPOW; -ONETAB13; -URIB118C PO
[2017-02-02 08:41] VITALS: BP 120/66; PULSE 94; RESP 16; TEMP 98.3; O2SAT 97
[2017-02-02 09:00] LABS: BLOOD, URINE LARGE (NEG); GLUCOSE,URINE NEG (NEG); KETONE, URINE NEG (NEG); NITRITE,URINE NEG (NEG); PH, URINE 5.5 (5.0-8.5)
--- NOTE | 2017-02-02 09:01 | PD ---
HPI Chief Complaint: Complaint Time Seen by Provider: 08:48 Travel History International Travel<30 days: No Contact w/Intl Traveler<30days: No Traveled to known affect area: No History of Present Illness HPI The patient was seen and examined in the presence of the nurse. This patient complains of dysuria. She says she's had frequent UTIs in her history. Duration 2 days. Severity is mild to moderate. No fever or alleviating factors. PFSH Past Medical History Arthritis: Yes Asthma: Yes Autoimmune Disease: No Anxiety: Yes Depression: Yes Heart Rhythm Problems: Yes (MITRAL VALVE PROLAPSE) Cancer: No Cardiovascular Problems: Yes (MITRAL VALVE PROLAPSE) High Cholesterol: Yes Chemotherapy: No Chest Pain: Yes (this admit) Congestive Heart Failure: No COPD: No Cerebrovascular Accident: No Diminished Hearing: No Endocrine: No GERD: No Genitourinary: Yes Hiatal Hernia: No Immune Disorder: No Kidney Stones: Yes (10 MM LEFT KIDNEY) Neurologic: Yes (SPINAL STENOSIS) Psychiatric: Yes Reproductive: No Respiratory: Yes Migraines: No Radiation Therapy: No Renal Failure: No Seizures: No Sickle Cell Disease: No Sleep Apnea: No Thyroid Disease: Yes (HYPOTHYROIDISM) Ulcer: No ?: Not Menopausal: Yes Past Surgical History AICD: No Appendectomy: Yes Arteriovenous Shunt: No Cardiac Surgery: No Genitourinary Surgery: Yes (BLADDER SUSPENSION) Gynecologic Surgery: Yes (BLADDER SUSPENSION) Hysterectomy: Yes (TOTAL) Insulin Pump: No Joint Replacement: Yes (BILATERAL KNEE) Neurologic Surgery: No Pacemaker: No Thoracic Surgery: No Tonsillectomy: Yes Other Surgery: Yes Social History Alcohol Use: No Tobacco Use: No Substance Use: No Allergies-Medications (Allergen,Severity, Reaction): Coded Allergies: Aspirin (Verified Allergy, Intermediate, Hives, 02/02/17) Cortisone (Verified Allergy, Mild, "IT MAKES ME NUTS", 02/02/17) Reported Meds & Prescriptions Reported Meds & Active Scripts Active Cipro (Ciprofloxacin HCl) 500 Mg Tab 500 Mg PO BID Reported One Daily For Women (Multiple Vitamins W/ Minerals) 1 Tab Tab Calcium & Magnesium + Zinc (Zgyrmbt-Jyaqobprd-Trzg) 334-134-5 Mg Tab 1 Tab PO Cyanocobalamin Inj (Cyanocobalamin) 1,000 Mcg/Ml Inj 1,000 Mcg IM Q30D Lactose 1 Pow Pow Uribel (Wrxkxzqaxbf-Awccw-Ccmpvecll Blue) 1 Cap 118 Mg PO QID PRN Mirtazapine 7.5 Mg Tab 30 Mg PO HS Zolpidem (Zolpidem Tartrate) 1.75 Mg Sub 10 Mg SL HS PRN Aripiprazole 10 Mg Tab 10 Mg PO DAILY Etodolac 400 Mg Tab 400 Mg PO BID Take with food. Welchol (Colesevelam HCl) 625 Mg Tab 1,875 Mg PO BID Zetia (Ezetimibe) 10 Mg Tab 10 Mg PO DAILY Potassium 75 Mg Tab 40 Premarin (Estrogens Conjugated) 0.3 Mg Tab 0.3 Mg PO DAILY Synthroid (Levothyroxine Sodium) 75 Mcg Tab 75 Mcg PO DAILY Fiber Tabs (Calcium Polycarbophil) 625 Mg Tab 625 Mg PO BID PRN Miralax Powder (Polyethylene Glycol 3350 Powder) 17 Gm Powd Gm PO DAILY Mix and dissolve one measuring cap-ful (17 grams) in water or juice. Humira 2-Pack Inj (Adalimumab 2-Pack Inj) 20 Mg/0.4 Ml Syr 20 Mg SQ EVERY 3 WEEKS Amitiza (Lubiprostone) 8 Mcg Cap 24 Mcg PO BID Furosemide 40 Mg Tab 40 Mg PO DAILY Viibryd (Vilazodone) 40 Mg Tab 40 Mg PO DAILY Review of Systems General / Constitutional: No: Fever HENT: No: Headaches Cardiovascular: No: Chest Pain or Discomfort Respiratory: No: Cough Physical Exam Narrative GASTROINTESTINAL: Abdomen soft, non-tender, nondistended. Positive bowel sounds. No hepato-splenomegaly, or palpable masses. No guarding. SKIN: Focused skin assessment reveals no rash or ulcers. Skin is warm and dry. Palpation shows no induration or nodules. Psych: Normal mood and affect. Normal insight and judgment. Data Data Last Documented VS Vital Signs Date Time Temp Pulse Resp B/P Pulse Ox O2 Delivery O2 Flow Rate FiO2 02/02/17 08:41 98.3 94 16 120/66 97 Orders Urinalysis - C+S If Indicated (02/02/17 08:53) Urine Culture (02/02/17 08:55) Labs Laboratory Tests Test 02/02/17 08:55 Urine Collection Type CLEAN CATCH Urine Color GREEN Urine Turbidity SLIGHT Urine pH 5.5 Urine Specific [place] 1.017 Urine Protein 100 mg/dL Urine Glucose (UA) NEG mg/dL Urine Ketones NEG mg/dL Urine Occult Blood LARGE Urine Nitrite NEG Urine Bilirubin NEG Urine Leukocyte Esterase LARGE Urine RBC 100-200 /hpf Urine WBC 100-200 /hpf Urine WBC Clumps MOD Urine Squamous Epithelial > 8 /hpf Cells Urine Transitional Epithelial > 8 /hpf Cells Urine Bacteria FEW /hpf Urine Yeast (Budding) MOD Microscopic Urinalysis Comment CULTURE INDICATED Urine Collection Time 08:55 [facility] Medical Decision Making Medical Screen Exam Complete: Yes Emergency Medical Condition: Yes Medical Record Reviewed: Yes Differential Diagnosis Cystitis, UTI, pyelonephritis Narrative Course I have reviewed the patient's electronic medical record. Urinalysis is consistent with infection The urine is green from the methylene blue in the uribel she takes cipro prescribed Diagnosis Primary Impression: Cystitis Additional Instructions: The patient was advised to follow up with their physician and return if they worsen. Med/Other Pt SpecificInfo: Prescription(s) given Scripts Ciprofloxacin (Cipro)500 Mg [id number] Mg PO BID #10 TAB Ref 0 Prov:Boubacar Phliip MD 02/02/17 Disposition: 01 DISCHARGE HOME Condition: Stable Boubacar Philip MD February 02, 2017 09:01
[2017-02-02] MEDS ORDERED: ONETAB13 (09:07)
[2017-02-02] MEDS ORDERED: CALC1TAB53 PO (09:07)
[2017-02-02] MEDS ORDERED: CYAN1000P IM (09:07)
[2017-02-02] MEDS ORDERED: LACTPOW (09:07)
[2017-02-02] MEDS ORDERED: URIB118C PO (09:07)
[2017-02-02 09:08] LABS: METHOD OF COLLECTION CLEAN CATCH; URINE COLOR GREEN (YELLW/STRAW)
[2017-02-02 09:09] LABS: RBC, URINE 100-200 /hpf (0-3); SQUAMOUS EPITHELIAL CELL URINE > 8 /hpf (0-5); WBC, URINE 100-200 /hpf (0-5)
[2017-02-02 09:10] LABS: BACTERIA, URINE FEW /hpf; COMMENT (UR) CULTURE INDICATED; CULTURE IF INDICATED CULTURE INDICATED; TRANSITIONAL EPI CELLS, URINE > 8 /hpf
[2017-02-02] MEDS ORDERED: CIPR-9 PO (09:15)
== END 2017-02-02 09:31 | disposition home or self-care (01) ==
LOC: PHED 08:37
DX: N30.91 Cystitis, unspecified with hematuria (principal); B96.1 Klebsiella pneumoniae [K. pneumoniae] as the cause of diseases classified elsewhere; E03.9 Hypothyroidism, unspecified; E78.00 Pure hypercholesterolemia, unspecified; Z87.448 Personal history of other diseases of urinary system; Z87.39 Personal history of other diseases of the musculoskeletal system and connective tissue; Z87.09 Personal history of other diseases of the respiratory system; Z86.59 Personal history of other mental and behavioral disorders; Z86.79 Personal history of other diseases of the circulatory system; Z86.69 Personal history of other diseases of the nervous system and sense organs
CPT/HCPCS: 81001; 87077; 87086; 87186; 99283

== ENCOUNTER → 2017-02-06 | Outpatient (CLI) | payer MEDICARE, OTHER ==
[~2017-02-06] MED LIST changes: +CALC1TAB53 PO; +CIPR-9 PO; +CYAN1000P IM; +LACTPOW; +ONETAB13; +URIB118C PO
[2017-02-06 13:32] LABS: AUTOMATED NEUTROPHIL # 3.1 TH/MM3 (1.8-7.7); BASOPHIL % 0.7 % (0.0-2.0); EOSINOPHIL # 0.2 TH/MM3 (0-0.4); EOSINOPHIL % 3.2 % (0.0-4.0); HEMATOCRIT 38.1 % (35.0-46.0); HEMO FLAGS DIFF FINAL; LYMPH % 26.9 % (9.0-44.0); LYMPHOCYTE # 1.4 TH/MM3 (1.0-4.8); MEAN CELL VOLUME 91.6 FL (80.0-100.0); MEAN CORPUSCULAR HEMOGLOBIN 30.4 PG (27.0-34.0); MEAN CORPUSCULAR HGB CONC 33.1 % (32.0-36.0); MONO % 9.5 % (0.0-8.0); NEUT % 59.7 % (16.0-70.0); PLATELET COUNT 111 TH/MM3 (150-450); RED BLOOD COUNT 4.15 MIL/MM3 (4.00-5.30); RED CELL DISTRIBUTION WIDTH 14.1 % (11.6-17.2); WHITE BLOOD COUNT 5.3 TH/MM3 (4.0-11.0)
[2017-02-06 13:55] LABS: WESTERGREN SEDIMENTATION RATE 32 mm/hr (0-30)
[2017-02-06 14:12] LABS: ALKALINE PHOSPHATASE 48 U/L (45-117); ALT (GPT) 32 U/L (10-53); ANION GAP 8 MEQ/L (5-15); AST (GOT) 29 U/L (15-37); BICARBONATE 27.7 MEQ/L (21.0-32.0); BLOOD UREA NITROGEN 20 MG/DL (7-18); CHLORIDE 106 MEQ/L (98-107); GLOMERULAR FILTRATION RATE 63 ML/MIN (>89); GLUCOSE,FASTING 94 MG/DL (74-99); POTASSIUM 3.9 MEQ/L (3.5-5.1); SODIUM (NA) 142 MEQ/L (136-145); TOTAL BILIRUBIN ADULT 0.4 MG/DL (0.2-1.0)
[2017-02-06 14:20] LABS: HDL CHOLESTEROL 66.5 MG/DL (40.0-60.0)
== END ==
LOC: PLAB 08:32
PROVIDERS: ATTEND Allergy & Immunology
DX: L40.52 Psoriatic arthritis mutilans (principal); R60.9 Edema, unspecified; K59.00 Constipation, unspecified; E78.5 Hyperlipidemia, unspecified; N20.0 Calculus of kidney; R30.0 Dysuria; R26.81 Unsteadiness on feet; Z79.899 Other long term (current) drug therapy
CPT/HCPCS: 36415; 80053; 80061; 84443; 85025; 85652; 86140

== ENCOUNTER → 2017-07-10 | Outpatient (CLI) | payer MEDICARE, OTHER ==
[2017-07-10 13:04] LABS: AUTOMATED NEUTROPHIL # 2.1 TH/MM3 (1.8-7.7); EOSINOPHIL # 0.2 TH/MM3 (0-0.4); EOSINOPHIL % 4.7 % (0.0-4.0); HEMATOCRIT 39.6 % (35.0-46.0); HEMO FLAGS DIFF FINAL; LYMPH % 35.5 % (9.0-44.0); LYMPHOCYTE # 1.5 TH/MM3 (1.0-4.8); MEAN CELL VOLUME 94.8 FL (80.0-100.0); MEAN CORPUSCULAR HEMOGLOBIN 31.3 PG (27.0-34.0); MEAN CORPUSCULAR HGB CONC 33.1 % (32.0-36.0); MONO % 9.6 % (0.0-8.0); NEUT % 49.2 % (16.0-70.0); PLATELET COUNT 112 TH/MM3 (150-450); RED BLOOD COUNT 4.17 MIL/MM3 (4.00-5.30); RED CELL DISTRIBUTION WIDTH 13.8 % (11.6-17.2); WHITE BLOOD COUNT 4.2 TH/MM3 (4.0-11.0)
[2017-07-10 13:18] LABS: ANION GAP 5 MEQ/L (5-15); AST (GOT) 37 U/L (15-37); BICARBONATE 27.7 MEQ/L (21.0-32.0); BLOOD UREA NITROGEN 19 MG/DL (7-18); CHLORIDE 106 MEQ/L (98-107); GLOMERULAR FILTRATION RATE 53 ML/MIN (>89); GLUCOSE,FASTING 83 MG/DL (74-99); POTASSIUM 4.4 MEQ/L (3.5-5.1); SODIUM (NA) 139 MEQ/L (136-145)
[2017-07-10 13:22] LABS: ALKALINE PHOSPHATASE 51 U/L (45-117); ALT (GPT) 43 U/L (10-53); TOTAL BILIRUBIN ADULT 0.4 MG/DL (0.2-1.0)
== END ==
LOC: PLAB 10:00
PROVIDERS: ATTEND Specialist
DX: E53.1 Pyridoxine deficiency (principal); E78.2 Mixed hyperlipidemia; D69.6 Thrombocytopenia, unspecified; K59.09 Other constipation; R53.83 Other fatigue; E03.9 Hypothyroidism, unspecified; L40.50 Arthropathic psoriasis, unspecified
CPT/HCPCS: 36415; 80053; 82607; 84439; 84443; 85025; 86141

== ENCOUNTER → 2017-10-18 | Outpatient (CLI) | payer MEDICARE, OTHER ==
[~2017-10-18] MED LIST changes: +COLE625 PO; +EZET10 PO; -WELC625T2 PO; -ZETI10TA5 PO
[2017-10-18 09:48] LABS: AUTOMATED NEUTROPHIL # 2.4 TH/MM3 (1.8-7.7); BASOPHIL % 0.8 % (0.0-2.0); EOSINOPHIL # 0.2 TH/MM3 (0-0.4); EOSINOPHIL % 4.7 % (0.0-4.0); HEMATOCRIT 39.5 % (35.0-46.0); HEMOGLOBIN 13.5 GM/DL (11.6-15.3); LYMPH % 34.8 % (9.0-44.0); LYMPHOCYTE # 1.7 TH/MM3 (1.0-4.8); MEAN CELL VOLUME 92.8 FL (80.0-100.0); MEAN CORPUSCULAR HEMOGLOBIN 31.7 PG (27.0-34.0); MEAN CORPUSCULAR HGB CONC 34.2 % (32.0-36.0); MONO % 10.3 % (0.0-8.0); MONOCYTE # 0.5 TH/MM3 (0-0.9); NEUT % 49.4 % (16.0-70.0); PLATELET COUNT 118 TH/MM3 (150-450); RED BLOOD COUNT 4.26 MIL/MM3 (4.00-5.30); RED CELL DISTRIBUTION WIDTH 13.8 % (11.6-17.2); WHITE BLOOD COUNT 4.8 TH/MM3 (4.0-11.0)
[2017-10-18 10:12] LABS: ALBUMIN 3.6 GM/DL (3.4-5.0); AST (GOT) 40 U/L (15-37); BICARBONATE 29.9 MEQ/L (21.0-32.0); BLOOD UREA NITROGEN 18 MG/DL (7-18); CALCIUM 9.6 MG/DL (8.5-10.1); CHLORIDE 105 MEQ/L (98-107); CREATININE 0.76 MG/DL (0.50-1.00); GLOMERULAR FILTRATION RATE 73 ML/MIN (>89); GLUCOSE,FASTING 82 MG/DL (74-99); SODIUM (NA) 140 MEQ/L (136-145)
[2017-10-18 10:13] LABS: ALT (GPT) 47 U/L (10-53); CHOLESTEROL 192 MG/DL (120-200)
[2017-10-18 10:39] LABS: ALKALINE PHOSPHATASE 51 U/L (45-117); HDL CHOLESTEROL 79.8 MG/DL (40.0-60.0); LDL CHOLESTEROL 87 MG/DL (0-99); TOTAL BILIRUBIN ADULT 0.4 MG/DL (0.2-1.0); TOTAL PROTEIN 7.4 GM/DL (6.4-8.2); TRIGLYCERIDES 126 MG/DL (42-150)
== END ==
LOC: PLAB 08:09
PROVIDERS: ATTEND Specialist
DX: E53.1 Pyridoxine deficiency (principal); R53.83 Other fatigue; G20 Parkinson's disease; E78.2 Mixed hyperlipidemia; D69.6 Thrombocytopenia, unspecified; E03.9 Hypothyroidism, unspecified
CPT/HCPCS: 36415; 80053; 80061; 82607; 83090; 83921; 84443; 85025

== ENCOUNTER → 2018-03-11 | Outpatient (CLI) | payer MEDICARE, OTHER ==
[2018-03-11 10:18] LABS: BASOPHIL % 0.9 % (0.0-2.0); EOSINOPHIL # 0.2 TH/MM3 (0-0.4); HEMATOCRIT 40.9 % (35.0-46.0); HEMOGLOBIN 13.6 GM/DL (11.6-15.3); LYMPH % 33.7 % (9.0-44.0); LYMPHOCYTE # 1.3 TH/MM3 (1.0-4.8); MEAN CELL VOLUME 94.8 FL (80.0-100.0); MEAN CORPUSCULAR HEMOGLOBIN 31.6 PG (27.0-34.0); MEAN CORPUSCULAR HGB CONC 33.4 % (32.0-36.0); MEAN PLATELET VOLUME 11.8 FL (7.0-11.0); MONO % 9.5 % (0.0-8.0); MONOCYTE # 0.4 TH/MM3 (0-0.9); NEUT % 50.9 % (16.0-70.0); PLATELET COUNT 121 TH/MM3 (150-450); RED BLOOD COUNT 4.31 MIL/MM3 (4.00-5.30); RED CELL DISTRIBUTION WIDTH 14.1 % (11.6-17.2)
[2018-03-11 10:35] LABS: ALBUMIN 3.9 GM/DL (3.4-5.0); AST (GOT) 37 U/L (15-37); BICARBONATE 28.9 MEQ/L (21.0-32.0); BLOOD UREA NITROGEN 17 MG/DL (7-18); CALCIUM 9.2 MG/DL (8.5-10.1); CHLORIDE 106 MEQ/L (98-107); CHOLESTEROL 200 MG/DL (120-200); CREATININE 0.89 MG/DL (0.50-1.00); GLOMERULAR FILTRATION RATE 61 ML/MIN (>89); GLUCOSE,FASTING 88 MG/DL (74-99); SODIUM (NA) 142 MEQ/L (136-145)
[2018-03-11 10:43] LABS: ALKALINE PHOSPHATASE 49 U/L (45-117); ALT (GPT) 43 U/L (10-53); CHOLESTEROL/ HDL RATIO 2.54 RATIO; FREE T4 1.25 NG/DL (0.76-1.46); HDL CHOLESTEROL 78.5 MG/DL (40.0-60.0); LDL CHOLESTEROL 100 MG/DL (0-99); TOTAL BILIRUBIN ADULT 0.6 MG/DL (0.2-1.0); TOTAL PROTEIN 7.9 GM/DL (6.4-8.2); TRIGLYCERIDES 110 MG/DL (42-150)
== END ==
LOC: PLAB 08:32
PROVIDERS: ATTEND Family Medicine
DX: D69.59 Other secondary thrombocytopenia (principal); E03.9 Hypothyroidism, unspecified; E78.2 Mixed hyperlipidemia
CPT/HCPCS: 36415; 80053; 80061; 84439; 84443; 85025

== ENCOUNTER 2018-06-22 01:26 | Inpatient (IN) ==
[2018-06-22 02:20] LABS: Bilirubin,Urine Negative (Negative); Clarity,Urine Slightly Cloudy (Clear); Color,Urine Yellow (Yellw/Straw); Glucose,Urine (UA) Negative (Negative); Leukocyte Esterase,Urine Moderate (Negative); Nitrite,Urine Positive (Negative); Urobilinogen,Urine 0.2 mg/dL (Less than 2)
[2018-06-22 02:43] LABS: Bacteria,Urine Moderate /hpf; Squamous Epithelial Cell,Urine 0-5 /hpf (0-5); WBC,Urine Innumerable /hpf (0-5)
[2018-06-22 04:33] LABS: Chloride 100 meq/L (98-107); Potassium 3.1 meq/L (3.5-5.1); Sodium 139 meq/L (136-145)
[2018-06-22 04:36] LABS: Calcium 9.9 mg/dL (8.5-10.1)
[2018-06-22 04:37] LABS: Albumin 3.8 g/dL (3.4-5.0); Anion Gap 8 meq/L (5-15); Blood Urea Nitrogen 19 mg/dL (7-18); Carbon Dioxide 30.7 meq/L (21.0-32.0); Glucose,Random 111 mg/dL (74-106)
--- NOTE | 2018-06-22 04:37 | XR ---
EXAM DATE: 06/22/2018 3:41 AM EDT AGE/SEX: 82 years / Female INDICATIONS: . Trauma to chest post fall 1 week ago CLINICAL DATA: This is the patient's initial encounter. Patient reports that signs and symptoms have been present for 1 week and indicates a pain score of 0/10. MEDICAL/SURGICAL HISTORY: . Renal Calculi. Asthma. Mitral valve prolapse. . Hysterectomy. Appe ndectomy. Tonsillectomy COMPARISON: No prior exams available for comparison. FINDINGS: PA and lateral views of the chest demonstrate the lungs to be symmetrically aerated without evidence of mass, infiltrate or effusion. The cardiomediastinal contours are unremarkable. Osseous structures are intact. CONCLUSION: No acute cardiopulmonary process. Electronically signed by: Kashmir Ohara MD 06/22/2018 4:36 AM EDT
[2018-06-22 04:40] LABS: Alanine Aminotransferase 17 U/L (10-53); Aspartate Aminotransferase 16 U/L (15-37); Glomerular Filtration Rate 67 mL/min (>89)
[2018-06-22 04:41] LABS: Baso # (Auto) 0.1 th/mm3 (0.0-0.2); Baso % (Auto) 0.5 % (0.0-2.0); Eos # (Auto) 0.1 th/mm3 (0.0-0.4); Eos % (Auto) 0.9 % (0.0-4.0); Hematocrit 40.8 % (35.0-46.0); Hemoglobin 13.8 gm/dL (11.6-15.3); Lymph # (Auto) 2.3 th/mm3 (1.0-4.8); Lymph % (Auto) 19.2 % (9.0-44.0); Mean Corpuscular HGB Conc 33.8 % (32.0-36.0); Mean Corpuscular Hemoglobin 31.3 pg (27.0-34.0); Mean Corpuscular Volume 92.7 fL (80.0-100.0); Mean Platelet Volume 11.7 fL (7.0-11.0); Mono # (Auto) 1.2 th/mm3 (0.0-0.9); Mono % (Auto) 10.2 % (0.0-8.0); Neut # (Auto) 8.1 th/mm3 (1.8-7.7); Neut % (Auto) 69.2 % (16.0-70.0); Platelet Count 115 th/mm3 (150-450); Total Protein 7.9 g/dL (6.4-8.2); White Blood Count 11.8 th/mm3 (4.0-11.0)
[2018-06-22 04:43] LABS: Alkaline Phosphatase 54 U/L (45-117)
--- NOTE | 2018-06-22 05:07 | ED ---
HPI General Chief complaint: Pain: Chronic Stated complaint: EVAC/Arthritis pain Time Seen by Provider: 06/22/18 02:44 Source: patient and family Mode of arrival: ambulatory Limitations: no limitations History of Present Illness HPI narrative: Patient presents with increasing pain to left lateral thorax. Pain increased in severity and not relieved with one Tylenol. EMS called and patient transported here for further evaluation. Patient well-known to staff and comes in frequently. who is the caregiver is confused; Seems to have difficulty taking care of her. Patient on presentation had overly saturated diaper with extreme excoriation to genital and buttocks area. Related Data Home Medications Medication Instructions Recorded Confirmed adalimumab [Humira] See Label Instructions .ROUTE 04/12/18 06/22/18 .COMPLEX aripiprazole 15 mg PO DAILY 04/12/18 06/22/18 carbidopa-levodopa 1 tab PO Q12H 04/12/18 06/22/18 conjugated estrogens [Premarin] 0.3 mg PO DAILY 04/12/18 06/22/18 cyanocobalamin (vitamin B-12) 1,000 mcg IM QMONTH 04/12/18 06/22/18 [Vitamin B-12] docusate sodium [Stool Softener] 100 mg PO BID 04/12/18 06/22/18 etodolac 400 mg PO BID PRN 04/12/18 06/22/18 ezetimibe [Zetia] 10 mg PO DAILY 04/12/18 06/22/18 furosemide 40 mg PO DAILY 04/12/18 06/22/18 lactase [Lactose Fast Acting 9,000 unit PO QID PRN 04/12/18 06/22/18 Relief] levothyroxine [Synthroid] 75 mcg PO DAILY 04/12/18 06/22/18 lubiprostone [Amitiza] 8 mcg PO BID 04/12/18 06/22/18 mirabegron [Myrbetriq] 25 mg PO DAILY 04/12/18 06/22/18 mirtazapine 30 mg PO HS 04/12/18 06/22/18 fk-ef-qivv-FA-Ca carb-vit K 1 tab PO DAILY 04/12/18 06/22/18 [Women's Daily Formula] polyethylene glycol 3350 [Miralax] 17 g PO BID 04/12/18 06/22/18 potassium chloride 40 meq PO DAILY 04/12/18 06/22/18 psyllium husk [Fiber (psyllium 1.04 g PO DAILY 04/12/18 06/22/18 husk)] vilazodone [Viibryd] 40 mg PO DAILY 04/12/18 06/22/18 conjugated estrogens [Premarin] 0.3 mg PO DAILY 06/22/18 06/22/18 zolpidem 5 mg PO DAILY 06/22/18 06/22/18 Previous Rx's Medication Instructions Recorded tramadol 50 mg PO Q6H PRN #12 tab 06/10/18 Allergies Allergy/AdvReac Type Severity Reaction Status Date / Time aspirin Allergy Intermediate Hives Verified 06/22/18 02:09 cortisone Allergy Mild "IT MAKES Verified 06/22/18 02:09 ME NUTS" Review of Systems ROS: all other systems reviewed are negative [facility] Medical History Medical History Arthritis (Acute) Cataract (lens) fragments in eye following cataract surgery (Acute) Depression (Acute) 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) Glaucoma of right eye (Acute) H/O: hysterectomy (Acute) Lymphedema (Acute) Mitral valve prolapse (Acute) Parkinsons (Acute) TIA (transient ischemic attack) (Acute) Surgical History Surgical History Total knee replacement status (Acute) Family History Family History Other Osteoarthritis Social History Social History Substance History: No History of Abuse Second Hand Smoke Exposure: No Smoking Status: Never smoker How Often Do You Have a Drink Containing Alcohol: Never Recent Travel in [facility] within the Last 8 Weeks: No Recent Out of Country Travel within the Last 8 Weeks: No Immunization History Tetanus Immunization: <5 Years Hx Influenza Vaccine This Season: Yes Exam Narrative Exam Narrative: GENERAL: Alert and responsive. Complains of left anterior chest pain SKIN: Focused skin assessment warm/dry. Patient has grade 1 decubiti extensively to both buttocks and monilia to anterior genital area. HEAD: Atraumatic. Normocephalic. EYES: Pupils equal and round. No scleral icterus. No injection or drainage. ENT: No nasal bleeding or discharge. Mucous membranes pink and moist. NECK: Trachea midline. No JVD. CARDIOVASCULAR: Regular rate and rhythm. No murmur appreciated. RESPIRATORY: No accessory muscle use. Clear to auscultation. Breath sounds equal bilaterally. Crepitant rales left lower lobe. Chest: Patient has well localized tenderness to left anterior axial line of 6 to seventh rib consistent with potential fracture GASTROINTESTINAL: Abdomen soft, non-tender, nondistended. Hepatic and splenic margins not palpable. MUSCULOSKELETAL: No obvious deformities. No clubbing. No cyanosis. No edema. NEUROLOGICAL: Awake and alert. No obvious cranial nerve deficits. Motor grossly within normal limits. Normal speech. PSYCHIATRIC: Appropriate mood and affect; insight and judgment normal. Course Initial Documented Vital Signs Temperature 100.0 F H 06/22/18 01:57 Pulse Rate 109 H 06/22/18 01:57 Respiratory Rate 18 06/22/18 01:57 Blood Pressure 131/59 L 06/22/18 01:57 Pulse Oximetry 97 06/22/18 01:57 Last Documented Vital Signs Temperature 97.6 F 06/22/18 16:00 Pulse Rate 103 H 06/22/18 16:00 Respiratory Rate 18 06/22/18 16:00 Blood Pressure 165/66 H 06/22/18 16:00 Pulse Oximetry 97 06/22/18 16:00 Medical Decision Making MDM Narrative Medical decision making narrative: Patient presents with chest wall pain secondary to slip and fall 3 weeks ago. Patient did not respond to 1 Tylenol. , who has a hard time caring for patient, called EMS for transport here due to pain. On presentation patient was found to have significant buttocks and and peroneal desquamation and Buchanan was placed to allow healing. Patient was admitted due to UTI and Buchanan need and early decubiti and monilia infection. Also, home service needs to be consulted to find a living facility for and to maintain their relationship in her care. Medical Screen Exam Complete: Yes Emergency Medical Condition: Yes Lab Data Result diagrams: 06/22/18 03:55 06/22/18 03:55 Lab Results 06/22/18 06/22/18 06/22/18 Range/Units 02:05 03:55 03:55 CBC w Diff Auto diff final WBC 11.8 H (4.0-11.0) th/mm3 RBC 4.40 (4.00-5.30) mil/mm3 Hgb 13.8 (11.6-15.3) gm/dL Hct 40.8 (35.0-46.0) % MCV 92.7 (80.0-100.0) fL MCH 31.3 (27.0-34.0) pg MCHC 33.8 (32.0-36.0) % RDW 13.0 (11.6-17.2) % Plt Count 115 L (150-450) th/mm3 MPV 11.7 H (7.0-11.0) fL Neut % (Auto) 69.2 (16.0-70.0) % Lymph % (Auto) 19.2 (9.0-44.0) % Graham % (Auto) 10.2 H (0.0-8.0) % Eos % (Auto) 0.9 (0.0-4.0) % Baso % (Auto) 0.5 (0.0-2.0) % Neut # (Auto) 8.1 H (1.8-7.7) th/mm3 Lymph # (Auto) 2.3 (1.0-4.8) th/mm3 Graham # (Auto) 1.2 H (0.0-0.9) th/mm3 Eos # (Auto) 0.1 (0.0-0.4) th/mm3 Baso # (Auto) 0.1 (0.0-0.2) th/mm3 WBC Differential . Differential Comment . Sodium 139 (136-145) meq/L Potassium 3.1 L (3.5-5.1) meq/L Chloride 100 (98-107) meq/L Carbon Dioxide 30.7 (21.0-32.0) meq/L Anion Gap 8 (5-15) meq/L BUN 19 H (7-18) mg/dL Creatinine 0.82 (0.50-1.00) mg/dL Estimated GFR 67 L (>89) mL/min Random Glucose 111 H (74-106) mg/dL Lactic Acid (0.4-2.0) mmol/L Calcium 9.9 (8.5-10.1) mg/dL Total Bilirubin 0.9 (0.2-1.0) mg/dL AST 16 (15-37) U/L ALT 17 (10-53) U/L Alkaline Phosphatase 54 (45-117) U/L Total Protein 7.9 (6.4-8.2) g/dL Albumin 3.8 (3.4-5.0) g/dL Urine Color Yellow (Yellw/Straw) Urine Clarity Slightly cloudy (Clear) Urine pH 6.0 (5.0-8.5) Ur Specific [place] 1.020 (1.002-1.035) Urine Protein Trace (Neg-Trace) mg/dL Urine Glucose (UA) Negative (Negative) mg/dL Urine Ketones Trace H (Negative) mg/dL Urine Occult Blood Moderate H (Negative) Urine Nitrate Positive H (Negative) Urine Bilirubin Negative (Negative) Urine Urobilinogen 0.2 (Less than 2) mg/dL Ur Leukocyte Esterase Moderate H (Negative) Urine RBC 4-15 H (0-3) /hpf Urine WBC Innumerable H (0-5) /hpf Urine WBC Clumps Many H (None) Ur Squamous Epith Cells 0-5 (0-5) /hpf Urine Bacteria Moderate H (None) /hpf Micro UA Comment Cath-culture ind Ur Microscopic Review Microscopic reviewed Urine Culture Comments Cath-cult indicated 06/22/18 Range/Units 03:55 CBC w Diff WBC (4.0-11.0) th/mm3 RBC (4.00-5.30) mil/mm3 Hgb (11.6-15.3) gm/dL Hct (35.0-46.0) % MCV (80.0-100.0) fL MCH (27.0-34.0) pg MCHC (32.0-36.0) % RDW (11.6-17.2) % Plt Count (150-450) th/mm3 MPV (7.0-11.0) fL Neut % (Auto) (16.0-70.0) % Lymph % (Auto) (9.0-44.0) % Graham % (Auto) (0.0-8.0) % Eos % (Auto) (0.0-4.0) % Baso % (Auto) (0.0-2.0) % Neut # (Auto) (1.8-7.7) th/mm3 Lymph # (Auto) (1.0-4.8) th/mm3 [place] # (Auto) (0.0-0.9) th/mm3 Eos # (Auto) (0.0-0.4) th/mm3 Baso # (Auto) (0.0-0.2) th/mm3 WBC Differential Differential Comment Sodium (136-145) meq/L Potassium (3.5-5.1) meq/L Chloride (98-107) meq/L Carbon Dioxide (21.0-32.0) meq/L Anion Gap (5-15) meq/L BUN (7-18) mg/dL Creatinine (0.50-1.00) mg/dL Estimated GFR (>89) mL/min Random Glucose (74-106) mg/dL Lactic Acid 1.4 (0.4-2.0) mmol/L Calcium (8.5-10.1) mg/dL Total Bilirubin (0.2-1.0) mg/dL AST (15-37) U/L ALT (10-53) U/L Alkaline Phosphatase (45-117) U/L Total Protein (6.4-8.2) g/dL Albumin (3.4-5.0) g/dL Urine Color (Yellw/Straw) Urine Clarity (Clear) Urine pH (5.0-8.5) Ur Specific [place] (1.002-1.035) Urine Protein (Neg-Trace) mg/dL Urine Glucose (UA) (Negative) mg/dL Urine Ketones (Negative) mg/dL Urine Occult Blood (Negative) Urine Nitrate (Negative) Urine Bilirubin (Negative) Urine Urobilinogen (Less than 2) mg/dL Ur Leukocyte Esterase (Negative) Urine RBC (0-3) /hpf Urine WBC (0-5) /hpf Urine WBC Clumps (None) Ur Squamous Epith Cells (0-5) /hpf Urine Bacteria (None) /hpf Micro UA Comment Ur Microscopic Review Urine Culture Comments Imaging Data Radiologist's impression: Shoulder X-Ray 06/22/18 00:00 CONCLUSION: Degenerative changes. No acute fracture of the left shoulder is identified. Chest X-Ray 06/22/18 03:41 CONCLUSION: No acute cardiopulmonary process. Discharge Plan Discharge Disposition Patient Disposition: 30 Still Patient Physicians Team ED Provider: Iam Deutsch Primary Care Provider: Kathy Scales Attending Provider: Sanjeev Looney Other Providers: [facility],Agency ; [facility],Agency Discharge Interventions Interventions: ED Discharge Assessment Last Done: 06/22/18 07:24 Vital Signs Last Done: 06/22/18 07:25 Status ED Status: Left Department Discharge Information Discharge Date/Time: 06/22/18 07:10
[2018-06-22] MEDS ORDERED: LACTASE 9000 UNIT PO PRN (05:36)
[2018-06-22] MEDS ORDERED: Bisacodyl 10 MG Supp RECTAL PRN (05:37)
[2018-06-22] MEDS ORDERED: LEVOTHYROXINE 75 MCG PO SCH (06:00)
[2018-06-22] MEDS: Sod Chloride 0.9% Inj 1,000 ML IV.CONT SCH (06:24)
[2018-06-22] MEDS: Levothyroxine 75 MCG Tablet PO SCH (08:17)
[2018-06-22] MEDS ORDERED: CARBIDOPA LEVODOPA PO SCH (09:00)
[2018-06-22] MEDS: Docusate Sodium 100 MG Capsule PO SCH ×2 (09:52→21:45)
[2018-06-22] MEDS: Carbidopa/Levodopa CR 50/200 MG Tablet PO SCH ×2 (09:52→21:45)
--- NOTE | 2018-06-22 11:34 | P.HPIM ---
History of Present Illness Primary Care Physician: Kathy Scales MD History of Present Illness: Mrs. Ely is an 82-year-old female. She came in the hospital overnight secondary to worsening fatigue and pain. She feels her is not able to continue to take care of her in his present state which she feels has an element of dementia. Recently she had a rib fracture and has pain from this. Findings in the ER are of a low-grade fever, urinary tract infection, perineal candidiasis, and early sacral decubitus ulcer grade 1 (no open skin). She would benefit from a retirement facility if that is an option. - Diagnosis (1) UTI (urinary tract infection) (2) Candidiasis of female genitalia (3) Rib fracture (4) Failure to thrive Inpatient Certification: I certify that the inpatient services were ordered in accordance with Medicare regulations governing the order. This includes certification that hospital inpatient services are reasonable and necessary and in the case of services not specified as inpatient-only under 42 CFR 419.22(n), that they are appropriately provided as inpatient services in accordance to with the 2-midnight benchmark under 43 CFR 412.3(e) Estimated Total Length of Stay (Days): 3 Plans for Post Hospital Care: Not yet determined Review of Systems Constitutional: No fevers, no chills no night sweats, fatigue, weakness, failure to thrive Eyes: No eye pain, no blurry vision, no loss of vision ENT: No sore throat, no ear pain, no rhinorrhea Cardiovascular: No chest pain, no tachycardia, no palpitations, no shortness of breath, no syncope Respiratory: No wheezing, no cough, no shortness of breath Gastrointestinal: No abdominal pain, no black tarry stools, no bright red blood per rectum, no vomiting, no diarrhea Musculoskeletal: No joint pain, no muscle cramps, no stiffness Integumentary: No rash, no ulcers, no drainage Neurologic: No sensory loss, no loss of motor function, no dizziness Psychiatric: No behavioral changes, no hallucinations, no suicidal ideations PMFSH - History History Provided By: Patient - Medical History Medical History: Medical History (Last Reviewed 06/22/18 @ 05:08 by Iam Deutsch MD) Arthritis Cataract (lens) fragments in eye following cataract surgery Depression 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 Glaucoma of right eye H/O: hysterectomy Lymphedema Mitral valve prolapse Parkinsons TIA (transient ischemic attack) - Surgical History Surgical History: Surgical History (Last Reviewed 06/22/18 @ 05:08 by Iam Deutsch MD) Total knee replacement status - Family History Family History: Family History (Last Updated 06/22/18 @ 11:28 by Jed Chavis MD) Other Osteoarthritis - Tobacco History Second Hand Smoke Exposure: No Tobacco Use In Past 30 Days: No Smoking Status: Never smoker - Alcohol History How Often Do You Have a Drink Containing Alcohol: Never - Substance Use History Substance History: No History of Abuse - Travel History Recent Travel in the [place] Within the Last 8 Weeks: No Recent Travel Out of the Country Within the Last 8 Weeks: No - Immunization History Tetanus Immunization: Never Vaccinated Hx Influenza Vaccine This Season: Yes Medications and Allergies Active Medications: Active Medications Al Hydroxide/Mg Hydroxide (Milk Of Magnesia Liq) 30 ml PO Q12H PRN PRN Reason: Mild Constipation Aripiprazole (Abilify) 15 mg PO DAILY [facility] Last Admin: 06/22/18 09:53 Dose: 15 mg Bisacodyl (Dulcolax Supp) 10 mg RECTAL DAILY PRN PRN Reason: SEVERE CONSITIPATION Carbidopa/Levodopa (Sinemet Cr 50/200 Mg) 0.5 tab PO Q12H [facility] Last Admin: 06/22/18 09:52 Dose: 0.5 tab Docusate Sodium (Colace) 100 mg PO BID [facility] Last Admin: 06/22/18 09:52 Dose: 100 mg Fluconazole (Diflucan) 200 mg PO DAILY [facility] Sodium Chloride (Ns Inj) 1,000 mls @ 30 mls/hr IV.CONT .Q24H [facility] Last Admin: 06/22/18 06:24 Dose: 30 mls/hr Ceftriaxone Sodium 1,000 mg/ (Sodium Chloride) 100 mls @ 200 mls/hr IV.SIG Q24H [facility] Lactulose (Lactulose Liq) 30 ml PO DAILY PRN PRN Reason: SEVERE CONSITIPATION Levothyroxine Sodium (Synthroid) 75 mcg PO DAILY@0600 [facility] Last Admin: 06/22/18 08:17 Dose: 75 mcg Miscellaneous (Pill Splitter) 1 each OTHER UNSCH [facility] Sennosides (Senokot) 17.2 mg PO Q12H PRN PRN Reason: Moderate Constipation Sodium Chloride (Ns Flush) 2 ml IV.FLUSH PRN PRN PRN Reason: FLUSH AFTER USING IV ACCESS Allergies Allergy/AdvReac Type Severity Reaction Status Date / Time aspirin Allergy Intermediate Hives Verified 06/22/18 02:09 cortisone Allergy Mild "IT MAKES Verified 06/22/18 02:09 ME NUTS" Home Medications Medication Instructions Recorded Confirmed Type adalimumab [Humira] See Label Instructions .ROUTE 04/12/18 06/22/18 History .COMPLEX aripiprazole 15 mg PO DAILY 04/12/18 06/22/18 History carbidopa-levodopa 1 tab PO Q12H 04/12/18 06/22/18 History conjugated estrogens [Premarin] 0.3 mg PO DAILY 04/12/18 06/22/18 History cyanocobalamin (vitamin B-12) 1,000 mcg IM QMONTH 04/12/18 06/22/18 History [Vitamin B-12] docusate sodium [Stool Softener] 100 mg PO BID 04/12/18 06/22/18 History etodolac 400 mg PO BID PRN 04/12/18 06/22/18 History ezetimibe [Zetia] 10 mg PO DAILY 04/12/18 06/22/18 History furosemide 40 mg PO DAILY 04/12/18 06/22/18 History lactase [Lactose Fast Acting 9,000 unit PO QID PRN 04/12/18 06/22/18 History Relief] levothyroxine [Synthroid] 75 mcg PO DAILY 04/12/18 06/22/18 History lubiprostone [Amitiza] 8 mcg PO BID 04/12/18 06/22/18 History mirabegron [Myrbetriq] 25 mg PO DAILY 04/12/18 06/22/18 History mirtazapine 30 mg PO HS 04/12/18 06/22/18 History ul-xx-nqvl-FA-Ca carb-vit K 1 tab PO DAILY 04/12/18 06/22/18 History [Women's Daily Formula] polyethylene glycol 3350 [Miralax] 17 g PO BID 04/12/18 06/22/18 History potassium chloride 40 meq PO DAILY 04/12/18 06/22/18 History psyllium husk [Fiber (psyllium 1.04 g PO DAILY 04/12/18 06/22/18 History husk)] vilazodone [Viibryd] 40 mg PO DAILY 04/12/18 06/22/18 History conjugated estrogens [Premarin] 0.3 mg PO DAILY 06/22/18 06/22/18 History zolpidem 5 mg PO DAILY 06/22/18 06/22/18 History Exam Vital signs: Vital Signs 06/22/18 01:57 06/22/18 02:02 06/22/18 04:06 Temperature 100.0 F H 99.3 F Pulse Rate 109 H 82 92 H Respiratory Rate 18 16 Blood Pressure 131/59 L 135/68 121/58 L Pulse Oximetry 97 06/22/18 05:23 06/22/18 05:56 06/22/18 07:25 Temperature Pulse Rate 94 H 85 Respiratory Rate Blood Pressure 109/51 L 129/54 L Pulse Oximetry 98 98 96 06/22/18 08:00 Temperature 98.7 F Pulse Rate 94 H Respiratory Rate 18 Blood Pressure 127/61 Pulse Oximetry 98 Intake & Output 06/21/18 06/22/18 06/22/18 18:59 06:59 18:59 Intake Total 100 / 100 Balance 100 / 100 Weight 83.915 kg Intake: IV 100 / 100 Rocephin Inj 1,000 MG In NS Inj 100 / 100 100 ML @ 200 mls/hr IV.SIG ONCE ONE Rx#:[id number] Narrative: GENERAL: NAD, A&Ox3, lethargic HEAD: Normocephalic. NECK: Supple, trachea midline. No lymphadenopathy. EYES: No scleral icterus. No injection or drainage. CARDIOVASCULAR: Regular rate and rhythm without murmurs, gallops, or rubs. RESPIRATORY: Breath sounds equal bilaterally. No accessory muscle use. GASTROINTESTINAL: Abdomen soft, non-tender, nondistended. MUSCULOSKELETAL: No cyanosis, or edema. SKIN: Warm and dry. NEURO: No focal neurological deficits. Results - Labs CBC & Chem 7: 06/22/18 03:55 06/22/18 03:55 Labs: Short CBC 06/22/18 Range/Units 03:55 WBC 11.8 H (4.0-11.0) th/mm3 Hgb 13.8 (11.6-15.3) gm/dL Hct 40.8 (35.0-46.0) % Plt Count 115 L (150-450) th/mm3 BMP 06/22/18 03:55 Sodium 139 Potassium 3.1 L Chloride 100 Carbon Dioxide 30.7 BUN 19 H Creatinine 0.82 Calcium 9.9 Liver Function 06/22/18 Range/Units 03:55 Total Bilirubin 0.9 (0.2-1.0) mg/dL AST 16 (15-37) U/L ALT 17 (10-53) U/L Alkaline Phosphatase 54 (45-117) U/L Albumin 3.8 (3.4-5.0) g/dL Urine 06/22/18 Range/Units 02:05 Urine Color Yellow (Yellw/Straw) Urine Clarity Slightly cloudy (Clear) Urine pH 6.0 (5.0-8.5) Ur Specific [place] 1.020 (1.002-1.035) Urine Protein Trace (Neg-Trace) mg/dL Urine Glucose (UA) Negative (Negative) mg/dL - Imaging Impressions Chest X-Ray 06/22/18 03:41 CONCLUSION: No acute cardiopulmonary process. Caprini VTE Risk Assessment Caprini VTE Risk Assessment: Moderate/High Risk (score >= 2) Caprini Risk Assessment Model: Point Value = 1 Point Value = 2 Point Value = 3 Point Value = 5 Age 41-60 Minor surgery BMI > 25 kg/m2 Swollen legs Varicose veins or History of unexplained or recurrent spontaneous Oral contraceptives or hormone replacement Sepsis (< 1 month) Serious lung disease, including pneumonia (< 1 month) Abnormal pulmonary function Acute myocardial infarction Congestive heart failure (< 1 month) History of inflammatory bowel disease Medical patient at bed rest Age 61-74 Arthroscopic surgery Major open surgery (> 45 min) Laparoscopic surgery (> 45 min) Malignancy Confined to bed (> 72 hours) Immobilizing plaster cast Central venous access Age >= 75 History of VTE Family history of VTE Factor V Leiden Prothrombin [id number] Lupus anticoagulant Anticardiolipin antibodies Elevated serum homocysteine Heparin-induced thrombocytopenia Other congenital or acquired thrombophilia Stroke (< 1 month) Elective arthroplasty Hip, pelvis, or leg fracture Acute spinal cord injury (< 1 month) Prophylaxis Regimen: Total Risk Factor Score Risk Level Prophylaxis Regimen 0-1 Low Early ambulation 2 Moderate Order ONE of the following: *Sequential Compression Device (SCD) *Heparin 5000 units SQ BID 3-4 Higher Order ONE of the following medications: *Heparin 5000 units SQ TID *Enoxaparin/Lovenox 40 mg SQ daily (WT < 150 kg, CrCl > 30 mL/min) *Enoxaparin/Lovenox 30 mg SQ daily (WT < 150 kg, CrCl > 10-29 mL/min) *Enoxaparin/Lovenox 30 mg SQ BID (WT < 150 kg, CrCl > 30 mL/min) AND/OR *Sequential Compression Device (SCD) 5 or more Highest Order ONE of the following medications: *Heparin 5000 units SQ TID (Preferred with Epidurals) *Enoxaparin/Lovenox 40 mg SQ daily (WT < 150 kg, CrCl > 30 mL/min) *Enoxaparin/Lovenox 30 mg SQ daily (WT < 150 kg, CrCl > 10-29 mL/min) *Enoxaparin/Lovenox 30 mg SQ BID (WT < 150 kg, CrCl > 30 mL/min) AND *Sequential Compression Device (SCD) Assessment and Plan - Assessment (1) UTI (urinary tract infection) Code(s): N39.0 - Urinary tract infection, site not specified Status: Acute (2) Candidiasis of female genitalia Code(s): B37.3 - Candidiasis of vulva and vagina Status: Acute (3) Rib fracture Code(s): S22.39XA - Fracture of one rib, unspecified side, initial encounter for closed fracture Status: Acute (4) Failure to thrive Status: Acute - Plan 82-year-old female admitted secondary to subacute rib fracture, candidiasis, and early decubitus ulcer. Failure to thrive does not appear to be able to manage his in her present state May need retirement facility at time of discharge Low-grade fever Urinary tract infection Candidiasis or Perineum Continue Rocephin Continue Diflucan Probiotics Monitor for clinical improvement Follow cultures Lethargy Metabolic encephalopathy Secondary to UTI Treatment monitor for improvement Subacute rib fracture Report of care As needed pain treatment Glaucoma Continue baseline treatments Parkinson's disease Continue baseline treatments Physical Therapy Occupational Therapy Mitral valve prolapse History of TIA Lymphedema Osteoarthritis Cataract Depression No acute changes in these conditions Continue baseline treatments DVT prophylaxis Heparin H&P: Quality - VTE Deep Vein Thrombosis/Pulmonary Embolism Present on Admission: No
[2018-06-22] MEDS ORDERED: Etodolac 200 MG Capsule PO PRN (12:10)
[2018-06-22] MEDS ORDERED: LODINE PO PRN (14:30)
[2018-06-22] MEDS: Lactobacillus Acidophilus/L. Spores Tablet PO SCH ×2 (15:25→18:46)
--- NOTE | 2018-06-22 17:07 | XR ---
EXAM DATE: 06/22/2018 12:00 AM EDT AGE/SEX: 82 years / Female INDICATIONS: Pain due to fall 3 weeks ago. CLINICAL DATA: This is the patient's initial encounter. Patient reports that signs and symptoms have been present for 3 weeks and indicates a pain score of 6/10. MEDICAL/SURGICAL HISTORY: . Renal Calculi. Asthma. Mitral valve prolapse. Hysterectomy. Append ectomy. Tonsillectomy COMPARISON: No prior exams available for comparison. FINDINGS: The humeral head is well situated within the glenoid fossa. The alignment is anatomic. There are mild degenerative changes in the AC joint. The limited portion of lung apex visualized is clear. CONCLUSION: Degenerative changes. No acute fracture of the left shoulder is identified. Electronically signed by: Jed Perea MD 06/22/2018 3:24 PM EDT
[2018-06-22] MEDS ORDERED: LUBIPROSTONE 8 MCG PO SCH (21:00)
[2018-06-22] MEDS: Mirtazapine 15 MG Tablet PO SCH (21:45)
[2018-06-22] MEDS: Polyethylene Glycol 3350 17 GM Packet PO SCH (21:50)
[2018-06-22] MEDS: Heparin - SQ 10,000 UNITS/ML Vial SQ SCH (21:55)
[2018-06-22] MEDS ORDERED: Acetaminophen 325 MG Tablet PO PRN (22:13)
[2018-06-23] MEDS: Levothyroxine 75 MCG Tablet PO SCH (05:37)
[2018-06-23 08:21] LABS: Alanine Aminotransferase 7 U/L (10-53); Albumin 3.3 g/dL (3.4-5.0); Alkaline Phosphatase 50 U/L (45-117); Anion Gap 11 meq/L (5-15); Aspartate Aminotransferase 19 U/L (15-37); Blood Urea Nitrogen 19 mg/dL (7-18); Calcium 9.5 mg/dL (8.5-10.1); Carbon Dioxide 29.3 meq/L (21.0-32.0); Chloride 99 meq/L (98-107); Glomerular Filtration Rate 77 mL/min (>89); Glucose,Random 95 mg/dL (74-106); Sodium 139 meq/L (136-145); Total Protein 7.6 g/dL (6.4-8.2)
[2018-06-23 08:24] LABS: Potassium 2.7 meq/L (3.5-5.1)
[2018-06-23] MEDS: Polyethylene Glycol 3350 17 GM Packet PO SCH ×2 (08:31→20:17)
[2018-06-23] MEDS: Psyllium Husk SF 3.4 GM in 5.8 GM Packet PO SCH (08:32)
[2018-06-23] MEDS: Carbidopa/Levodopa CR 50/200 MG Tablet PO SCH ×2 (08:32→20:17)
[2018-06-23] MEDS: Lactobacillus Acidophilus/L. Spores Tablet PO SCH ×3 (08:33→17:28)
[2018-06-23] MEDS: Docusate Sodium 100 MG Capsule PO SCH ×2 (08:33→20:16)
[2018-06-23] MEDS: Tolterodine Tartrate LA 2 MG Capsule PO SCH (08:33)
[2018-06-23] MEDS: Multivitamin/Minerals Therapeutic Tablet PO SCH (08:34)
[2018-06-23] MEDS: Heparin - SQ 10,000 UNITS/ML Vial SQ SCH ×2 (08:34→20:17)
[2018-06-23] MEDS: Furosemide 40 MG Tablet PO SCH (08:35)
[2018-06-23] MEDS: Ezetimibe 10 MG Tablet PO SCH (08:36)
[2018-06-23] MEDS: Sod Chloride 0.9% Inj 1,000 ML IV.CONT SCH (08:47)
[2018-06-23] MEDS ORDERED: Potassium Chloride 25 MEQ Effervescent Tablet PO ONE (09:00)
[2018-06-23] MEDS ORDERED: VILAZODONE 40 MG PO SCH (09:00)
[2018-06-23 09:58] LABS: Baso # (Auto) 0.1 th/mm3 (0.0-0.2); Baso % (Auto) 0.6 % (0.0-2.0); Eos % (Auto) 0.3 % (0.0-4.0); Hematocrit 39.6 % (35.0-46.0); Hemoglobin 13.2 gm/dL (11.6-15.3); Lymph # (Auto) 2.2 th/mm3 (1.0-4.8); Lymph % (Auto) 19.6 % (9.0-44.0); Mean Corpuscular HGB Conc 33.2 % (32.0-36.0); Mean Corpuscular Volume 93.3 fL (80.0-100.0); Mean Platelet Volume 12.4 fL (7.0-11.0); Mono # (Auto) 1.3 th/mm3 (0.0-0.9); Mono % (Auto) 11.2 % (0.0-8.0); Neut # (Auto) 7.7 th/mm3 (1.8-7.7); Neut % (Auto) 68.3 % (16.0-70.0); Platelet Count 98 th/mm3 (150-450); Red Blood Count 4.25 mil/mm3 (4.00-5.30); White Blood Count 11.3 th/mm3 (4.0-11.0)
[2018-06-23 10:24] LABS: Platelet Morphology Normal (Normal)
--- NOTE | 2018-06-23 11:42 | P.PNIM ---
Subjective Interval history: Patient remains lethargic but is arousable. Gram-positive cocci is present in 2 blood cultures today. No new complaints from patient. Physical Exam Vital signs: Vital Signs 06/22/18 12:00 06/22/18 16:00 06/22/18 20:00 Temperature 98.7 F 97.6 F 101.8 F H Pulse Rate 99 H 103 H 116 H Respiratory Rate 18 18 18 Blood Pressure 107/61 165/66 H 133/63 Pulse Oximetry 98 97 90 L 06/23/18 01:34 06/23/18 04:43 06/23/18 08:00 Temperature 100.5 F H 98.5 F Pulse Rate 102 H 101 H Respiratory Rate 18 18 18 Blood Pressure 113/55 L 110/55 L Pulse Oximetry 90 L 92 L 06/23/18 09:00 Temperature 98.2 F Pulse Rate 92 H Respiratory Rate 18 Blood Pressure 114/56 L Pulse Oximetry 95 Intake & Output 06/22/18 06/23/18 06/23/18 18:59 06:59 18:59 Intake Total 360 / 360 470 / 470 50 / 50 Output Total 550 / 550 250 / 250 Balance -190 / -190 220 / 220 50 / 50 Weight 80 kg Intake: IV 350 / 350 50 / 50 NS Inj 1,000 ML @ 30 mls/hr IV. 250 / 250 50 / 50 CONT .Q24H GINGER Rx#:[id number] Rocephin Inj 1,000 MG In NS Inj 100 / 100 100 ML @ 200 mls/hr IV.SIG Q24H GINGER Rx#:[id number] Oral 360 / 360 120 / 120 Output: Urine 250 / 250 Urine Amount (Catheter) 550 / 550 Indwelling Urethral Catheter 550 / 550 Other: Date of Last Bowel Movement 06/19/18 Narrative: GENERAL: NAD, A&Ox3, lethargic HEAD: Normocephalic. NECK: Supple, trachea midline. No lymphadenopathy. EYES: No scleral icterus. No injection or drainage. CARDIOVASCULAR: Regular rate and rhythm without murmurs, gallops, or rubs. RESPIRATORY: Breath sounds equal bilaterally. No accessory muscle use. GASTROINTESTINAL: Abdomen soft, non-tender, nondistended. MUSCULOSKELETAL: No cyanosis, or edema. SKIN: Warm and dry. NEURO: No focal neurological deficits. - Urinary Catheter Management Indwelling Urethral Catheter Cath placed during this visit: yes Reason for continuing: Severe pressure ulcer/wound Insertion date: 06/21/18 Insertion time: 01:50 Results - Labs CBC & Chem 7: 06/23/18 06:42 06/23/18 06:42 Laboratory Results - last 24 hr 06/23/18 06/23/18 06:42 06:42 CBC w Diff Slide review pending WBC 11.3 H RBC 4.25 Hgb 13.2 Hct 39.6 MCV 93.3 MCH 31.0 MCHC 33.2 RDW 13.0 Plt Count 98 L MPV 12.4 H Neut % (Auto) 68.3 Lymph % (Auto) 19.6 [place] % (Auto) 11.2 H Eos % (Auto) 0.3 Baso % (Auto) 0.6 Neut # (Auto) 7.7 Lymph # (Auto) 2.2 [place] # (Auto) 1.3 H Eos # (Auto) 0.0 Baso # (Auto) 0.1 WBC Differential . Diff Scan Auto diff confirmed Differential Comment . Platelet Estimate Low L Platelet Morphology Normal Sodium 139 Potassium 2.7 L* Chloride 99 Carbon Dioxide 29.3 Anion Gap 11 BUN 19 H Creatinine 0.73 Estimated GFR 77 L Random Glucose 95 Calcium 9.5 Total Bilirubin 1.0 AST 19 ALT 7 L Alkaline Phosphatase 50 Total Protein 7.6 Albumin 3.3 L Microbiology 06/22/18 03:55 Blood - Peripheral Aerobic Blood Culture - Preliminary No growth in 1 day 06/22/18 03:55 Blood - Peripheral Anaerobic Blood Culture - Preliminary gram positive cocci 06/22/18 04:03 Blood - Peripheral Aerobic Blood Culture - Preliminary No growth in 1 day 06/22/18 04:03 Blood - Peripheral Anaerobic Blood Culture - Preliminary gram positive cocci - Imaging Impressions Shoulder X-Ray 06/22/18 00:00 CONCLUSION: Degenerative changes. No acute fracture of the left shoulder is identified. Assessment and Plan - Assessment (1) UTI (urinary tract infection) Code(s): N39.0 - Urinary tract infection, site not specified Status: Acute (2) Candidiasis of female genitalia Code(s): B37.3 - Candidiasis of vulva and vagina Status: Acute (3) Rib fracture Code(s): S22.39XA - Fracture of one rib, unspecified side, initial encounter for closed fracture Status: Acute (4) Failure to thrive Status: Acute - Plan 82-year-old female admitted secondary to subacute rib fracture, candidiasis, and early decubitus ulcer. Failure to thrive does not appear to be able to manage his in her present state May need snf facility at time of discharge Bacteremia Positive cocci on cultures monitor blood cultures further Vancomycin added for coverage of gram-positive cocci Low-grade fever Urinary tract infection Continue Rocephin Vancomycin Probiotics Monitor for clinical improvement Follow urine cultures Candidiasis or Perineum Continue Diflucan Probiotics Lethargy Metabolic encephalopathy Failure to thrive Secondary to UTI Treatment monitor for improvement Hypokalemia Replace as needed and monitor for recurrence Subacute rib fracture Report of care As needed pain treatment Glaucoma Continue baseline treatments Parkinson's disease Continue baseline treatments Physical Therapy Occupational Therapy Mitral valve prolapse History of TIA Lymphedema Osteoarthritis Cataract Depression No acute changes in these conditions Continue baseline treatments DVT prophylaxis Heparin
[2018-06-23] MEDS ORDERED: Vancomycin Inj 1 GM/200 ML PIGGYBACK IV.SIG SCH (12:00)
[2018-06-23] MEDS ORDERED: Vancomycin Consult Pharmacy OTHER PRN (12:00)
[2018-06-23] MEDS: Vancomycin Inj 1,250 MG in Sodium Chlor 0.9% Inj 250 ML IV.SIG SCH (14:16)
[2018-06-23] MEDS: Mirtazapine 15 MG Tablet PO SCH (20:17)
[2018-06-23] MEDS: Acetaminophen 325 MG Tablet PO PRN (20:17)
[2018-06-24] MEDS: Levothyroxine 75 MCG Tablet PO SCH (06:06)
[2018-06-24 06:41] LABS: Baso % (Auto) 0.4 % (0.0-2.0); Eos % (Auto) 0.4 % (0.0-4.0); Hematocrit 36.5 % (35.0-46.0); Hemoglobin 12.4 gm/dL (11.6-15.3); Lymph # (Auto) 1.6 th/mm3 (1.0-4.8); Lymph % (Auto) 15.7 % (9.0-44.0); Mean Corpuscular Hemoglobin 31.5 pg (27.0-34.0); Mean Corpuscular Volume 92.8 fL (80.0-100.0); Mean Platelet Volume 12.7 fL (7.0-11.0); Mono % (Auto) 10.1 % (0.0-8.0); Neut # (Auto) 7.3 th/mm3 (1.8-7.7); Neut % (Auto) 73.4 % (16.0-70.0); Platelet Count 100 th/mm3 (150-450); Red Blood Count 3.93 mil/mm3 (4.00-5.30); Red Cell Distribution Width 12.5 % (11.6-17.2); White Blood Count 9.9 th/mm3 (4.0-11.0)
[2018-06-24 06:49] LABS: Chloride 105 meq/L (98-107); Potassium 3.7 meq/L (3.5-5.1); Sodium 140 meq/L (136-145)
[2018-06-24 06:57] LABS: Albumin 2.7 g/dL (3.4-5.0); Anion Gap 10 meq/L (5-15); Blood Urea Nitrogen 15 mg/dL (7-18); Calcium 9.1 mg/dL (8.5-10.1); Carbon Dioxide 24.7 meq/L (21.0-32.0); Glucose,Random 87 mg/dL (74-106)
[2018-06-24 07:00] LABS: Alanine Aminotransferase 9 U/L (10-53); Aspartate Aminotransferase 24 U/L (15-37); Glomerular Filtration Rate Greater Than 89 mL/min (>89)
[2018-06-24 07:02] LABS: Total Protein 6.7 g/dL (6.4-8.2)
[2018-06-24 07:03] LABS: Alkaline Phosphatase 52 U/L (45-117)
[2018-06-24 07:27] LABS: Platelet Morphology Normal (Normal)
[2018-06-24] MEDS: Vancomycin Inj 1,250 MG in Sodium Chlor 0.9% Inj 250 ML IV.SIG SCH (08:51)
[2018-06-24] MEDS: Psyllium Husk SF 3.4 GM in 5.8 GM Packet PO SCH (08:59)
[2018-06-24] MEDS: Carbidopa/Levodopa CR 50/200 MG Tablet PO SCH ×2 (08:59→21:11)
[2018-06-24] MEDS: Tolterodine Tartrate LA 2 MG Capsule PO SCH (09:02)
[2018-06-24] MEDS: Lactobacillus Acidophilus/L. Spores Tablet PO SCH ×3 (09:04→17:44)
[2018-06-24] MEDS: Docusate Sodium 100 MG Capsule PO SCH ×2 (09:04→21:11)
[2018-06-24] MEDS: Furosemide 40 MG Tablet PO SCH (09:05)
[2018-06-24] MEDS: Heparin - SQ 10,000 UNITS/ML Vial SQ SCH ×2 (09:05→21:11)
[2018-06-24] MEDS: Multivitamin/Minerals Therapeutic Tablet PO SCH (09:05)
[2018-06-24] MEDS: Polyethylene Glycol 3350 17 GM Packet PO SCH ×2 (09:06→21:13)
--- NOTE | 2018-06-24 12:54 | P.PNIM ---
Subjective Interval history: Patient is more alert today. No fevers overnight. Escherichia coli has grown on urine culture with broad sensitivities. Possible bacteremia, first culture is growing staph epidermidis which might be a contaminant. Other blood culture is pending without specificity yet. Physical Exam Vital signs: Vital Signs 06/23/18 13:14 06/23/18 16:32 06/23/18 20:07 Temperature 99.8 F H 100.3 F H 101.8 F H Pulse Rate 105 H 112 H 103 H Respiratory Rate 18 18 20 Blood Pressure 130/60 123/60 113/58 L Pulse Oximetry 95 95 96 06/24/18 08:00 06/24/18 12:00 Temperature 99.2 F 98.4 F Pulse Rate 109 H 113 H Respiratory Rate 20 20 Blood Pressure 128/59 L 133/63 Pulse Oximetry 95 96 Intake & Output 06/23/18 06/24/18 06/24/18 18:59 06:59 18:59 Intake Total 552.5 / 552.5 160 / 160 1000 / 1000 Output Total 1500 / 1500 375 / 375 Balance -947.5 / -947.5 -215 / -215 1000 / 1000 Weight 82.8 kg Intake: IV 312.5 / 312.5 100 / 100 1000 / 1000 NS + KCl 20 mEq Inj 1,000 ML @ 1000 / 1000 42 mls/hr IV.CONT .[id number] GINGER Rx#:[id number] NS Inj 1,000 ML @ 30 mls/hr IV. 50 / 50 CONT .Q24H GINGER Rx#:[id number] Vancomycin Inj 1,250 MG In NS 262.5 / 262.5 Inj 250 ML @ 250 mls/hr IV.SIG Q18H GINGER Rx#:[id number] Rocephin Inj 1,000 MG In NS Inj 100 / 100 100 ML @ 200 mls/hr IV.SIG Q24H GINGER Rx#:[id number] Oral 240 / 240 60 / 60 Output: Urine 700 / 700 375 / 375 Urine Amount (Catheter) 800 / 800 Indwelling Urethral Catheter 800 / 800 Other: Date of Last Bowel Movement 06/23/18 # Bowel Movements 0 Narrative: GENERAL: NAD, A&Ox3 HEAD: Normocephalic. NECK: Supple, trachea midline. No lymphadenopathy. EYES: No scleral icterus. No injection or drainage. CARDIOVASCULAR: Regular rate and rhythm without murmurs, gallops, or rubs. RESPIRATORY: Breath sounds equal bilaterally. No accessory muscle use. GASTROINTESTINAL: Abdomen soft, non-tender, nondistended. MUSCULOSKELETAL: No cyanosis, or edema. SKIN: Warm and dry. NEURO: No focal neurological deficits. - Urinary Catheter Management Indwelling Urethral Catheter Cath placed during this visit: yes Reason for continuing: Severe pressure ulcer/wound Insertion date: 06/21/18 Insertion time: 01:50 Results - Labs CBC & Chem 7: 06/24/18 05:16 06/24/18 05:16 Laboratory Results - last 24 hr 06/23/18 06/24/18 06/24/18 12:45 05:16 05:16 CBC w Diff Slide review pending WBC 9.9 RBC 3.93 L Hgb 12.4 Hct 36.5 MCV 92.8 MCH 31.5 MCHC 34.0 RDW 12.5 Plt Count 100 L MPV 12.7 H Neut % (Auto) 73.4 H Lymph % (Auto) 15.7 [place] % (Auto) 10.1 H Eos % (Auto) 0.4 Baso % (Auto) 0.4 Neut # (Auto) 7.3 Lymph # (Auto) 1.6 [place] # (Auto) 1.0 H Eos # (Auto) 0.0 Baso # (Auto) 0.0 WBC Differential . Diff Scan Auto diff confirmed Differential Comment . Platelet Estimate Low L Platelet Morphology Normal Sodium 140 Potassium 3.6 D 3.7 Chloride 105 Carbon Dioxide 24.7 Anion Gap 10 BUN 15 Creatinine 0.52 Estimated GFR Greater than 89 Random Glucose 87 Calcium 9.1 Total Bilirubin 1.1 H AST 24 ALT 9 L Alkaline Phosphatase 52 Total Protein 6.7 D Albumin 2.7 L D Microbiology 06/22/18 04:03 Blood - Peripheral Aerobic Blood Culture - Preliminary gram positive cocci 06/22/18 04:03 Blood - Peripheral Anaerobic Blood Culture - Preliminary gram positive cocci 06/22/18 03:55 Blood - Peripheral Aerobic Blood Culture - Preliminary No growth in 2 days 06/22/18 03:55 Blood - Peripheral Anaerobic Blood Culture - Preliminary Staphylococcus epidermidis 06/23/18 12:45 Blood - Peripheral Aerobic Blood Culture - Preliminary No growth in 1 day 06/23/18 12:45 Blood - Peripheral Anaerobic Blood Culture - Preliminary No growth in 1 day 06/22/18 02:05 Catheterized Urine Urine Culture - Final Escherichia coli Assessment and Plan - Assessment (1) UTI (urinary tract infection) Code(s): N39.0 - Urinary tract infection, site not specified Status: Acute (2) Candidiasis of female genitalia Code(s): B37.3 - Candidiasis of vulva and vagina Status: Acute (3) Rib fracture Code(s): S22.39XA - Status: Acute (4) Failure to thrive Status: Acute - Plan 82-year-old female admitted secondary to subacute rib fracture, candidiasis, and early decubitus ulcer. Urine culture shows E. coli. This is covered by Rocephin. Continue present treatments. Continue monitoring blood cultures for definitive cauterization. Anticipate [facility] facility in 1-2 days. Failure to thrive Improving with treatment of infection does not appear to be able to manage his in her present state May need [facility] facility at time of discharge Bacteremia Positive cocci on cultures monitor blood cultures further Vancomycin added for coverage of gram-positive cocci Low-grade fever Urinary tract infection E. coli UTI Continue Rocephin Probiotics Monitor for clinical improvement Follow urine cultures Candidiasis or Perineum Continue Diflucan Probiotics Lethargy Metabolic encephalopathy Failure to thrive Secondary to UTI Treatment monitor for improvement Hypokalemia Replace as needed and monitor for recurrence Subacute rib fracture Report of care As needed pain treatment Glaucoma Continue baseline treatments Parkinson's disease Continue baseline treatments Physical Therapy Occupational Therapy Mitral valve prolapse History of TIA Lymphedema Osteoarthritis Cataract Depression No acute changes in these conditions Continue baseline treatments DVT prophylaxis Heparin
[2018-06-24] MEDS: Ezetimibe 10 MG Tablet PO SCH (13:00)
[2018-06-24] MEDS: Mirtazapine 15 MG Tablet PO SCH (21:11)
[2018-06-25] MEDS: Vancomycin Inj 1,250 MG in Sodium Chlor 0.9% Inj 250 ML IV.SIG SCH ×2 (02:13→20:45)
[2018-06-25] MEDS: Levothyroxine 75 MCG Tablet PO SCH (06:03)
--- NOTE | 2018-06-25 09:42 | P.PNIM ---
Subjective Interval history: Fevers present overnight. Patient appears more lethargic again. No other complaints. Physical Exam Vital signs: Vital Signs 06/24/18 12:00 06/24/18 16:00 06/24/18 20:00 Temperature 98.4 F 101.3 F H 99 F Pulse Rate 113 H 106 H 113 H Respiratory Rate 20 20 20 Blood Pressure 133/63 121/59 L 123/60 Pulse Oximetry 96 95 94 L 06/25/18 00:00 Temperature 100.1 F H Pulse Rate 106 H Respiratory Rate 18 Blood Pressure 136/68 Pulse Oximetry 97 Intake & Output 06/24/18 06/25/18 06/25/18 18:59 06:59 18:59 Intake Total 1322.5 / 1322.5 262.5 / 262.5 100 / 100 Output Total 400 / 400 200 / 200 Balance 922.5 / 922.5 62.5 / 62.5 100 / 100 Weight 81.6 kg Intake: IV 1262.5 / 1262.5 262.5 / 262.5 100 / 100 NS + KCl 20 mEq Inj 1,000 ML @ 1000 / 1000 42 mls/hr IV.CONT .[id number] GINGER Rx#:[id number] Vancomycin Inj 1,250 MG In NS 262.5 / 262.5 262.5 / 262.5 Inj 250 ML @ 250 mls/hr IV.SIG Q18H GINGER Rx#:[id number] Rocephin Inj 1,000 MG In NS Inj 100 / 100 100 ML @ 200 mls/hr IV.SIG Q24H GINGER Rx#:[id number] Oral 60 / 60 Output: Urine 400 / 400 200 / 200 Other: # Voids 2 Date of Last Bowel Movement 06/23/18 Narrative: GENERAL: NAD, A&Ox3 HEAD: Normocephalic. NECK: Supple, trachea midline. No lymphadenopathy. EYES: No scleral icterus. No injection or drainage. CARDIOVASCULAR: Regular rate and rhythm without murmurs, gallops, or rubs. RESPIRATORY: Breath sounds equal bilaterally. No accessory muscle use. GASTROINTESTINAL: Abdomen soft, non-tender, nondistended. MUSCULOSKELETAL: No cyanosis, or edema. SKIN: Warm and dry. NEURO: No focal neurological deficits. - Urinary Catheter Management Indwelling Urethral Catheter Cath placed during this visit: yes Reason for continuing: Severe pressure ulcer/wound Insertion date: 06/21/18 Insertion time: 01:50 Results - Labs CBC & Chem 7: 06/24/18 05:16 06/24/18 05:16 Microbiology 06/22/18 04:03 Blood - Peripheral Aerobic Blood Culture - Final Staphylococcus coag negative 06/22/18 04:03 Blood - Peripheral Anaerobic Blood Culture - Final Staphylococcus epidermidis 06/22/18 03:55 Blood - Peripheral Aerobic Blood Culture - Preliminary No growth in 2 days 06/22/18 03:55 Blood - Peripheral Anaerobic Blood Culture - Final Staphylococcus epidermidis 06/23/18 12:45 Blood - Peripheral Aerobic Blood Culture - Preliminary No growth in 1 day 06/23/18 12:45 Blood - Peripheral Anaerobic Blood Culture - Preliminary No growth in 1 day 06/22/18 02:05 Catheterized Urine Urine Culture - Final Escherichia coli Assessment and Plan - Assessment (1) UTI (urinary tract infection) Code(s): N39.0 - Urinary tract infection, site not specified Status: Acute (2) Candidiasis of female genitalia Code(s): B37.3 - Candidiasis of vulva and vagina Status: Acute (3) Rib fracture Code(s): S22.39XA - Fracture of one rib, unspecified side, initial encounter for closed fracture Status: Acute (4) Failure to thrive Status: Acute - Plan 82-year-old female admitted secondary to subacute rib fracture, candidiasis, and early decubitus ulcer. Urine culture shows E. coli. This is covered by Rocephin. Continue present treatments. Continue monitoring blood cultures for definitive cauterization. Anticipate alf facility in 1-2 days. Failure to thrive Improving with treatment of infection does not appear to be able to manage his in her present state May need alf facility at time of discharge Bacteremia Positive cocci on cultures monitor blood cultures further Vancomycin added for coverage of gram-positive cocci Discontinue Buchanan catheter. Repeat blood cultures. Obtain chest x-ray. Continue to treat with Rocephin, Diflucan, and vancomycin. Low-grade fever Urinary tract infection E. coli UTI Continue Rocephin Probiotics Monitor for clinical improvement Follow urine cultures Candidiasis or Perineum Continue Diflucan Probiotics Lethargy Metabolic encephalopathy Failure to thrive Secondary to UTI Treatment monitor for improvement Hypokalemia Replace as needed and monitor for recurrence Subacute rib fracture Report of care As needed pain treatment Glaucoma Continue baseline treatments Parkinson's disease Continue baseline treatments Physical Therapy Occupational Therapy Mitral valve prolapse History of TIA Lymphedema Osteoarthritis Cataract Depression No acute changes in these conditions Continue baseline treatments DVT prophylaxis Heparin
[2018-06-25] MEDS: Tolterodine Tartrate LA 2 MG Capsule PO SCH (10:03)
[2018-06-25] MEDS: Docusate Sodium 100 MG Capsule PO SCH ×2 (10:03→20:55)
[2018-06-25] MEDS: Ezetimibe 10 MG Tablet PO SCH (10:04)
[2018-06-25] MEDS: Polyethylene Glycol 3350 17 GM Packet PO SCH ×2 (10:04→20:59)
[2018-06-25] MEDS: Lactobacillus Acidophilus/L. Spores Tablet PO SCH ×3 (10:04→18:20)
[2018-06-25] MEDS: Carbidopa/Levodopa CR 50/200 MG Tablet PO SCH ×3 (10:04→20:55)
[2018-06-25] MEDS: Multivitamin/Minerals Therapeutic Tablet PO SCH (10:04)
[2018-06-25] MEDS: Psyllium Husk SF 3.4 GM in 5.8 GM Packet PO SCH (10:04)
[2018-06-25] MEDS: Furosemide 40 MG Tablet PO SCH (10:04)
[2018-06-25] MEDS: Heparin - SQ 10,000 UNITS/ML Vial SQ SCH ×2 (10:09→20:55)
--- NOTE | 2018-06-25 10:38 | XR ---
EXAM DATE: 06/25/2018 12:00 AM EDT AGE/SEX: 82 years / Female INDICATIONS: Fever. CLINICAL DATA: This is the patient's initial encounter. Patient reports that signs and symptoms have been present for 1 day and indicates a pain score of 0/10. MEDICAL/SURGICAL HISTORY: Arthritis. Renal Calculi. Lymphedema. Parkinsons. TIA. Mitral valve prolapse. Appendectomy. Tonsillectomy Hysterectomy. COMPARISON: [facility], CHEST 2V PA&LAT, 06/22/2018. . FINDINGS: Small left pleural effusion is noted. Left perihilar patchiness is noted consistent with possible pne umonia. The right lung is clear. The heart is stable. Degenerative changes and scoliosis of the thora cic spine are noted. Are noted CONCLUSION: 1. Left perihilar patchiness consistent with possible pneumonia. 2. Small left pleural effusion. Electronically signed by: Abdelrahman Molina MD 06/25/2018 10:36 AM EDT
--- NOTE | 2018-06-25 14:06 | P.PNWCN ---
Wound Care Nurse Consult Description: Wound consult ordered by for wound consult Communicated with: Marsha RN Recommendation: 1.cleanse groin region with remedy soft cloth 2. apply thin even layer of remedy antifungal powder Additional information: Patient was not seen today by copywriter per Marsha Registered nurse patient has moisture related skin damage to pannus/groin skin fold.Marsha knowledgeable on wound care guidelines for moisture control and treatment.
--- NOTE | 2018-06-25 18:11 | P.PN ---
Subjective Interval history: NOT SEEN Physical Exam Vital signs: Vital Signs 06/24/18 20:00 06/25/18 00:00 06/25/18 09:38 Temperature 99 F 100.1 F H 99.6 F Pulse Rate 113 H 106 H Respiratory Rate 20 18 Blood Pressure 123/60 136/68 109/64 Pulse Oximetry 94 L 97 06/25/18 12:59 Temperature 99.0 F Pulse Rate 104 H Respiratory Rate 16 Blood Pressure 126/62 Pulse Oximetry 96 Intake & Output 06/24/18 06/25/18 06/25/18 18:59 06:59 18:59 Intake Total 1322.5 / 1322.5 262.5 / 262.5 1200 / 1200 Output Total 400 / 400 200 / 200 Balance 922.5 / 922.5 62.5 / 62.5 1200 / 1200 Weight 81.6 kg Intake: IV 1262.5 / 1262.5 262.5 / 262.5 1200 / 1200 NS + KCl 20 mEq Inj 1,000 ML @ 1000 / 1000 1000 / 1000 42 mls/hr IV.CONT .[id number] GINGER Rx#:[id number] Diflucan 200 mg Premix Bag 100 100 / 100 ML @ 100 mls/hr IV.SIG Q24H GINGER Rx#:[id number] Vancomycin Inj 1,250 MG In NS 262.5 / 262.5 262.5 / 262.5 Inj 250 ML @ 250 mls/hr IV.SIG Q18H GINGER Rx#:[id number] Rocephin Inj 1,000 MG In NS Inj 100 / 100 100 ML @ 200 mls/hr IV.SIG Q24H GINGER Rx#:[id number] Oral 60 / 60 Output: Urine 400 / 400 200 / 200 Other: # Voids 2 Date of Last Bowel Movement 06/23/18 Narrative: GENERAL: NAD, A&Ox3 HEAD: Normocephalic. NECK: Supple, trachea midline. No lymphadenopathy. EYES: No scleral icterus. No injection or drainage. CARDIOVASCULAR: Regular rate and rhythm without murmurs, gallops, or rubs. RESPIRATORY: Breath sounds equal bilaterally. No accessory muscle use. GASTROINTESTINAL: Abdomen soft, non-tender, nondistended. MUSCULOSKELETAL: No cyanosis, or edema. SKIN: Warm and dry. NEURO: No focal neurological deficits. - Urinary Catheter Management Indwelling Urethral Catheter Cath placed during this visit: yes Reason for continuing: Severe pressure ulcer/wound Insertion date: 06/21/18 Insertion time: 01:50 Results - Labs CBC & Chem 7: 06/24/18 05:16 06/24/18 05:16 Microbiology 06/23/18 12:45 Blood - Peripheral Aerobic Blood Culture - Preliminary No growth in 2 days 06/23/18 12:45 Blood - Peripheral Anaerobic Blood Culture - Preliminary No growth in 2 days 06/22/18 03:55 Blood - Peripheral Aerobic Blood Culture - Preliminary No growth in 3 days 06/22/18 03:55 Blood - Peripheral Anaerobic Blood Culture - Final Staphylococcus epidermidis 06/22/18 04:03 Blood - Peripheral Aerobic Blood Culture - Final Staphylococcus coag negative 06/22/18 04:03 Blood - Peripheral Anaerobic Blood Culture - Final Staphylococcus epidermidis - Imaging Impressions Shoulder X-Ray 06/22/18 00:00 CONCLUSION: Degenerative changes. No acute fracture of the left shoulder is identified. Chest X-Ray 06/25/18 00:00 CONCLUSION: 1. Left perihilar patchiness consistent with possible pneumonia. 2. Small left pleural effusion. Assessment and Plan - Assessment (1) UTI (urinary tract infection) Code(s): N39.0 - Urinary tract infection, site not specified Status: Acute (2) Candidiasis of female genitalia Code(s): B37.3 - Candidiasis of vulva and vagina Status: Acute (3) Rib fracture Code(s): S22.39XA - Fracture of one rib, unspecified side, initial encounter for closed fracture Status: Acute (4) Failure to thrive Status: Acute - Plan 82-year-old female admitted secondary to subacute rib fracture, candidiasis, and early decubitus ulcer. Urine culture shows E. coli. This is covered by Rocephin. Continue present treatments. Continue monitoring blood cultures for definitive cauterization. Anticipate half-way facility in 1-2 days. Failure to thrive Improving with treatment of infection does not appear to be able to manage his in her present state May need half-way facility at time of discharge PNA possible aspiration and Bacteremia Positive cocci on cultures monitor blood cultures further Vancomycin added for coverage of gram-positive cocci Discontinue Buchanan catheter. Continue to treat with Cefepime and Levaquin. E. coli UTI Continue Rocephin Probiotics Monitor for clinical improvement Follow urine cultures Candidiasis or Perineum Continue Diflucan Probiotics Lethargy Metabolic encephalopathy Failure to thrive Secondary to UTI Treatment monitor for improvement Hypokalemia Replace as needed and monitor for recurrence Subacute rib fracture Report of care As needed pain treatment Glaucoma Continue baseline treatments Parkinson's disease Continue baseline treatments Physical Therapy Occupational Therapy Mitral valve prolapse History of TIA Lymphedema Osteoarthritis Cataract Depression No acute changes in these conditions Continue baseline treatments DVT prophylaxis Heparin
[2018-06-25] MEDS: Acetaminophen 325 MG Tablet PO PRN (18:17)
[2018-06-25] MEDS ORDERED: VANCOMYCIN TROUGH OTHER ONE (19:45)
[2018-06-25] MEDS: Mirtazapine 15 MG Tablet PO SCH (20:55)
[2018-06-26] MEDS: Levothyroxine 75 MCG Tablet PO SCH (05:53)
[2018-06-26 06:54] LABS: Baso % (Auto) 0.5 % (0.0-2.0); Eos # (Auto) 0.1 th/mm3 (0.0-0.4); Hematocrit 33.5 % (35.0-46.0); Hemoglobin 11.1 gm/dL (11.6-15.3); Lymph # (Auto) 1.6 th/mm3 (1.0-4.8); Lymph % (Auto) 22.1 % (9.0-44.0); Mean Corpuscular HGB Conc 33.1 % (32.0-36.0); Mean Corpuscular Hemoglobin 30.7 pg (27.0-34.0); Mean Corpuscular Volume 92.9 fL (80.0-100.0); Mean Platelet Volume 12.2 fL (7.0-11.0); Mono % (Auto) 13.2 % (0.0-8.0); Neut # (Auto) 4.6 th/mm3 (1.8-7.7); Neut % (Auto) 62.2 % (16.0-70.0); Platelet Count 144 th/mm3 (150-450); Red Blood Count 3.61 mil/mm3 (4.00-5.30); White Blood Count 7.3 th/mm3 (4.0-11.0)
[2018-06-26 06:56] LABS: Chloride 107 meq/L (98-107); Potassium 3.8 meq/L (3.5-5.1); Sodium 140 meq/L (136-145)
[2018-06-26 07:00] LABS: Albumin 2.2 g/dL (3.4-5.0); Anion Gap 9 meq/L (5-15); Blood Urea Nitrogen 14 mg/dL (7-18); Calcium 8.8 mg/dL (8.5-10.1); Carbon Dioxide 24.5 meq/L (21.0-32.0); Glucose,Random 95 mg/dL (74-106)
[2018-06-26 07:39] LABS: Alanine Aminotransferase 43 U/L (10-53); Alkaline Phosphatase 73 U/L (45-117); Aspartate Aminotransferase 84 U/L (15-37); Glomerular Filtration Rate Greater Than 89 mL/min (>89); Total Protein 6.2 g/dL (6.4-8.2)
[2018-06-26] MEDS: Multivitamin/Minerals Therapeutic Tablet PO SCH (08:16)
[2018-06-26] MEDS: Docusate Sodium 100 MG Capsule PO SCH ×2 (08:16→21:19)
[2018-06-26] MEDS: Polyethylene Glycol 3350 17 GM Packet PO SCH ×2 (08:17→21:20)
[2018-06-26] MEDS: Lactobacillus Acidophilus/L. Spores Tablet PO SCH ×3 (08:17→17:57)
[2018-06-26] MEDS: Psyllium Husk SF 3.4 GM in 5.8 GM Packet PO SCH ×2 (08:17→08:56)
[2018-06-26] MEDS: Heparin - SQ 10,000 UNITS/ML Vial SQ SCH ×2 (08:17→21:19)
[2018-06-26] MEDS: Carbidopa/Levodopa CR 50/200 MG Tablet PO SCH ×2 (08:17→21:17)
[2018-06-26] MEDS: Ezetimibe 10 MG Tablet PO SCH (08:17)
[2018-06-26] MEDS: Tolterodine Tartrate LA 2 MG Capsule PO SCH (08:17)
[2018-06-26] MEDS: Furosemide 40 MG Tablet PO SCH (08:17)
--- NOTE | 2018-06-26 10:48 | P.PN ---
Subjective Interval history: Follow-up pneumonia and UTI. States she is slightly better. Has dry cough denies shortness of breath T-max 100.1. Physical Exam Vital signs: Vital Signs 06/25/18 12:59 06/25/18 18:59 06/25/18 20:00 Temperature 99.0 F 100.4 F H 100.1 F H Pulse Rate 104 H 113 H 107 H Respiratory Rate 16 18 18 Blood Pressure 126/62 113/55 L 117/56 L Pulse Oximetry 96 97 93 L 06/26/18 00:00 06/26/18 08:00 Temperature 99 F 97.8 F Pulse Rate 106 H 95 H Respiratory Rate 18 18 Blood Pressure 100/53 L 120/58 L Pulse Oximetry 92 L 93 L Intake & Output 06/25/18 06/26/18 06/26/18 18:59 06:59 18:59 Intake Total 1200 / 1200 1112.5 / 1112.5 950 / 950 Output Total 650 / 650 250 / 250 Balance 550 / 550 862.5 / 862.5 950 / 950 Weight 81.9 kg Intake: IV 1200 / 1200 412.5 / 412.5 950 / 950 NS + KCl 20 mEq Inj 1,000 ML @ 1000 / 1000 850 / 850 42 mls/hr IV.CONT .[id number] GINGER Rx#:[id number] Maxipime Inj 2,000 MG In NS Inj 100 / 100 100 ML @ 200 mls/hr IV.SIG Q12H GINGER Rx#:[id number] Diflucan 200 mg Premix Bag 100 100 / 100 ML @ 100 mls/hr IV.SIG Q24H GINGER Rx#:[id number] Levaquin 750 mg Premix Inj 150 150 / 150 ML @ 100 mls/hr IV.SIG Q24H GINGER Rx#:[id number] Vancomycin Inj 1,250 MG In NS 262.5 / 262.5 Inj 250 ML @ 250 mls/hr IV.SIG Q18H GINGER Rx#:[id number] Rocephin Inj 1,000 MG In NS Inj 100 / 100 100 ML @ 200 mls/hr IV.SIG Q24H GINGER Rx#:[id number] Oral 240 / 240 Other 460 / 460 Output: Urine 650 / 650 250 / 250 Other: Other Intake Source Saline Solution # Voids 1 Date of Last Bowel Movement 06/23/18 06/23/18 Narrative: GENERAL: NAD, A&Ox3 CARDIOVASCULAR: Regular rate and rhythm without murmurs, gallops, or rubs. RESPIRATORY: Breath sounds equal bilaterally. No accessory muscle use. GASTROINTESTINAL: Abdomen soft, non-tender, nondistended. MUSCULOSKELETAL: No cyanosis but with bilateral lower extremity pitting edema. SKIN: Warm and dry. NEURO: No focal neurological deficits. - Urinary Catheter Management Indwelling Urethral Catheter Cath placed during this visit: yes Reason for continuing: Severe pressure ulcer/wound Insertion date: 06/21/18 Insertion time: 01:50 Results - Labs CBC & Chem 7: 06/26/18 05:33 06/26/18 05:33 Laboratory Results - last 24 hr 06/25/18 06/26/18 06/26/18 20:00 05:33 05:33 CBC w Diff Auto diff final WBC 7.3 RBC 3.61 L Hgb 11.1 L Hct 33.5 L MCV 92.9 MCH 30.7 MCHC 33.1 RDW 13.0 Plt Count 144 L D MPV 12.2 H Neut % (Auto) 62.2 Lymph % (Auto) 22.1 [place] % (Auto) 13.2 H Eos % (Auto) 2.0 Baso % (Auto) 0.5 Neut # (Auto) 4.6 Lymph # (Auto) 1.6 [place] # (Auto) 1.0 H Eos # (Auto) 0.1 Baso # (Auto) 0.0 WBC Differential . Differential Comment . Sodium 140 Potassium 3.8 Chloride 107 Carbon Dioxide 24.5 Anion Gap 9 BUN 14 Creatinine 0.56 Estimated GFR Greater than 89 Random Glucose 95 Calcium 8.8 Total Bilirubin 0.6 AST 84 H ALT 43 Alkaline Phosphatase 73 Total Protein 6.2 L Albumin 2.2 L Vancomycin Trough 8.4 Microbiology 06/23/18 12:45 Blood - Peripheral Aerobic Blood Culture - Preliminary No growth in 2 days 06/23/18 12:45 Blood - Peripheral Anaerobic Blood Culture - Preliminary No growth in 2 days 06/22/18 03:55 Blood - Peripheral Aerobic Blood Culture - Preliminary No growth in 3 days 06/22/18 03:55 Blood - Peripheral Anaerobic Blood Culture - Final Staphylococcus epidermidis 06/22/18 04:03 Blood - Peripheral Aerobic Blood Culture - Final Staphylococcus coag negative 06/22/18 04:03 Blood - Peripheral Anaerobic Blood Culture - Final Staphylococcus epidermidis - Imaging ITS Impressions Shoulder X-Ray 06/22/18 00:00 CONCLUSION: Degenerative changes. No acute fracture of the left shoulder is identified. Chest X-Ray 06/25/18 00:00 CONCLUSION: 1. Left perihilar patchiness consistent with possible pneumonia. 2. Small left pleural effusion. - Procedures none Assessment and Plan - Assessment (1) UTI (urinary tract infection) Code(s): N39.0 - Urinary tract infection, site not specified Status: Acute (2) Candidiasis of female genitalia Code(s): B37.3 - Candidiasis of vulva and vagina Status: Acute (3) Rib fracture Code(s): S22.39XA - Fracture of one rib, unspecified side, initial encounter for closed fracture Status: Acute (4) Failure to thrive Status: Acute - Plan 82-year-old female admitted secondary to subacute rib fracture and candidiasis Failure to thrive Improving with treatment of infection does not appear to be able to manage his in her present state May need [facility] facility at time of discharge PNA possible aspiration and coag negative/staph epi bacteremia likely pseudo- bacteremia in a patient who is immunocompromised on Humira Blood cultures on June 23 negative to date. Repeat blood cultures today because of fever. May need infectious disease consult Discontinue Buchanan catheter. Continue to treat with vancomycin, cefepime and Levaquin. E. coli UTI On above antibiotic Candidiasis or Perineum Nystatin powder discontinue IV Diflucan Lethargy. Improving Metabolic encephalopathy. Improving Failure to thrive Secondary to UTI Treatment monitor for improvement Hypokalemia Replace as needed and monitor for recurrence Subacute rib fracture Report of care As needed pain treatment Glaucoma Continue baseline treatments Parkinson's disease Continue baseline treatments Physical Therapy Occupational Therapy Mitral valve prolapse History of TIA Lymphedema Osteoarthritis Cataract Depression No acute changes in these conditions Continue baseline treatments Elevated AST likely secondary to infection. Will monitor repeat LFTs in the morning DVT prophylaxis Heparin Discharge Planning: Rehab when clinically improved
[2018-06-26] MEDS: Nystatin 100,000 UNITS/GM Powder 15 GM Bottle TOPICAL SCH ×3 (12:38→21:16)
[2018-06-26] MEDS: Vancomycin Inj 1,250 MG in Sodium Chlor 0.9% Inj 250 ML IV.SIG SCH (12:38)
[2018-06-26] MEDS: Mirtazapine 15 MG Tablet PO SCH (21:21)
[2018-06-27] MEDS: Vancomycin Inj 1,250 MG in Sodium Chlor 0.9% Inj 250 ML IV.SIG SCH ×2 (00:18→12:40)
[2018-06-27] MEDS: Acetaminophen 325 MG Tablet PO PRN ×2 (04:50→17:51)
[2018-06-27] MEDS: Levothyroxine 75 MCG Tablet PO SCH (05:54)
[2018-06-27 07:16] LABS: Chloride 106 meq/L (98-107); Potassium 3.9 meq/L (3.5-5.1); Sodium 138 meq/L (136-145)
[2018-06-27 07:19] LABS: Calcium 9.1 mg/dL (8.5-10.1)
[2018-06-27 07:20] LABS: Albumin 2.3 g/dL (3.4-5.0); Anion Gap 7 meq/L (5-15); Blood Urea Nitrogen 10 mg/dL (7-18); Carbon Dioxide 24.7 meq/L (21.0-32.0); Glucose,Random 94 mg/dL (74-106)
[2018-06-27 07:23] LABS: Alanine Aminotransferase 54 U/L (10-53); Aspartate Aminotransferase 94 U/L (15-37); Glomerular Filtration Rate Greater Than 89 mL/min (>89)
[2018-06-27 07:25] LABS: Total Protein 6.6 g/dL (6.4-8.2)
[2018-06-27 07:26] LABS: Alkaline Phosphatase 76 U/L (45-117)
[2018-06-27] MEDS: Multivitamin/Minerals Therapeutic Tablet PO SCH (09:19)
[2018-06-27] MEDS: Lactobacillus Acidophilus/L. Spores Tablet PO SCH ×3 (09:19→17:11)
[2018-06-27] MEDS: Furosemide 40 MG Tablet PO SCH (09:19)
[2018-06-27] MEDS: Ezetimibe 10 MG Tablet PO SCH (09:19)
[2018-06-27] MEDS: Carbidopa/Levodopa CR 50/200 MG Tablet PO SCH (09:19)
[2018-06-27] MEDS: Docusate Sodium 100 MG Capsule PO SCH ×2 (09:19→23:59)
[2018-06-27] MEDS: Tolterodine Tartrate LA 2 MG Capsule PO SCH (09:20)
[2018-06-27] MEDS: Heparin - SQ 10,000 UNITS/ML Vial SQ SCH ×2 (09:20→23:59)
[2018-06-27] MEDS: Polyethylene Glycol 3350 17 GM Packet PO SCH (09:20)
[2018-06-27] MEDS: Psyllium Husk SF 3.4 GM in 5.8 GM Packet PO SCH (09:21)
[2018-06-27] MEDS: Nystatin 100,000 UNITS/GM Powder 15 GM Bottle TOPICAL SCH ×3 (09:21→17:12)
--- NOTE | 2018-06-27 09:38 | P.PN ---
Subjective Interval history: Follow-up pneumonia, UTI and bacteremia. Patient has no complaints she is oriented x3. Discussed with who reports intermittent disorientation which is chronic. No fever overnight Physical Exam Vital signs: Vital Signs 06/26/18 12:00 06/26/18 15:30 06/26/18 20:00 Temperature 98.1 F 98.7 F 98.7 F Pulse Rate 106 H 104 H 102 H Respiratory Rate 18 18 20 Blood Pressure 112/60 114/59 L 116/63 Pulse Oximetry 95 97 98 06/27/18 00:00 Temperature 99.8 F H Pulse Rate 107 H Respiratory Rate 20 Blood Pressure 119/64 Pulse Oximetry 94 L Intake & Output 06/26/18 06/27/18 06/27/18 18:59 06:59 18:59 Intake Total 2033 / 2033 925 / 925 Output Total 600 / 600 800 / 800 Balance 1433 / 1433 125 / 125 Weight 82 kg Intake: IV 1313 / 1313 865 / 865 NS + KCl 20 mEq Inj 1,000 ML @ 850 / 850 352 / 352 42 mls/hr IV.CONT .[id number] GINGER Rx#:[id number] Maxipime Inj 2,000 MG In NS Inj 200 / 200 100 / 100 100 ML @ 200 mls/hr IV.SIG Q12H GINGER Rx#:[id number] Levaquin 750 mg Premix Inj 150 150 / 150 ML @ 100 mls/hr IV.SIG Q24H GINGER Rx#:[id number] Vancomycin Inj 1,250 MG In NS 263 / 263 263 / 263 Inj 250 ML @ 250 mls/hr IV.SIG Q12H GINGER Rx#:[id number] Oral 720 / 720 60 / 60 Output: Urine 600 / 600 800 / 800 Other: Date of Last Bowel Movement 06/23/18 06/23/18 # Bowel Movements 0 Narrative: GENERAL: NAD, A&Ox3 CARDIOVASCULAR: Regular rate and rhythm without murmurs, gallops, or rubs. RESPIRATORY: Breath sounds equal bilaterally. No accessory muscle use. GASTROINTESTINAL: Abdomen soft, non-tender, nondistended. MUSCULOSKELETAL: No cyanosis but with bilateral lower extremity pitting edema. SKIN: Warm and dry. NEURO: No focal neurological deficits. - Urinary Catheter Management Indwelling Urethral Catheter Cath placed during this visit: yes Reason for continuing: Severe pressure ulcer/wound Insertion date: 06/21/18 Insertion time: 01:50 Results - Labs CBC & Chem 7: 06/26/18 05:33 06/27/18 06:00 Laboratory Results - last 24 hr 06/27/18 06:00 Sodium 138 Potassium 3.9 Chloride 106 Carbon Dioxide 24.7 Anion Gap 7 BUN 10 Creatinine 0.57 Estimated GFR Greater than 89 Random Glucose 94 Calcium 9.1 Total Bilirubin 0.6 AST 94 H ALT 54 H Alkaline Phosphatase 76 Total Protein 6.6 Albumin 2.3 L Microbiology 06/23/18 12:45 Blood - Peripheral Aerobic Blood Culture - Preliminary No growth in 3 days 06/23/18 12:45 Blood - Peripheral Anaerobic Blood Culture - Preliminary No growth in 3 days 06/22/18 03:55 Blood - Peripheral Aerobic Blood Culture - Preliminary No growth in 4 days 06/22/18 03:55 Blood - Peripheral Anaerobic Blood Culture - Final Staphylococcus epidermidis - Procedures none Assessment and Plan - Assessment (1) UTI (urinary tract infection) Code(s): N39.0 - Urinary tract infection, site not specified Status: Acute (2) Candidiasis of female genitalia Code(s): B37.3 - Candidiasis of vulva and vagina Status: Acute (3) Rib fracture Code(s): S22.39XA - Fracture of one rib, unspecified side, initial encounter for closed fracture Status: Acute (4) Failure to thrive Status: Acute - Plan 82-year-old female admitted secondary to subacute rib fracture and candidiasis Failure to thrive Improving with treatment of infection does not appear to be able to manage his in her present state May need group home facility at time of discharge PNA possible aspiration and coag negative/staph epi bacteremia likely pseudo- bacteremia in a patient who is immunocompromised on Humira Blood cultures on June 23 and June 26 negative to date. No recurrence of fever Discontinue Buchanan catheter. Continue to treat with vancomycin, cefepime and Levaquin. Switch to Augmentin upon discharge repeat chest x-ray in 6 weeks E. coli UTI On above antibiotic Candidiasis or Perineum Nystatin powder discontinue IV Diflucan Lethargy. Improving Metabolic encephalopathy. Improving Failure to thrive Secondary to UTI Treatment monitor for improvement Hypokalemia Replace as needed and monitor for recurrence Subacute rib fracture Report of care As needed pain treatment Glaucoma Continue baseline treatments Parkinson's disease Continue baseline treatments Physical Therapy Occupational Therapy Mitral valve prolapse History of TIA Lymphedema Osteoarthritis Cataract Depression No acute changes in these conditions Continue baseline treatments Elevated AST likely secondary to infection. Stable. Abdominal CT in 2017 unremarkable. Outpatient follow DVT prophylaxis Heparin Discharge Planning: Stable for discharge
--- NOTE | 2018-06-27 09:42 | P.DS ---
Date of admission: 06/22/18 05:56 Primary care physician: Kathy Scales MD Brief History from admission: Mrs. Ely is an 82-year-old female. She came in the hospital overnight secondary to worsening fatigue and pain. She feels her is not able to continue to take care of her in his present state which she feels has an element of dementia. Recently she had a rib fracture and has pain from this. Findings in the ER are of a low-grade fever, urinary tract infection, perineal candidiasis, and early sacral decubitus ulcer grade 1 (no open skin). She would benefit from a snf facility if that is an option. DS: Diagnosis - Discharge Diagnosis (1) UTI (urinary tract infection) Status: Acute (2) Candidiasis of female genitalia Status: Acute (3) Rib fracture Status: Acute (4) Failure to thrive Status: Acute DS: Medications - Discharge Medications Prescriptions: acidophilus-sporogenes [Acidophilus Ex Str (L. sporog)] 1 tab PO TID #30 tab nystatin [Nystop] 1 applicatio TOPICAL QID #1 g DS: Summary Hospital Course: 82-year-old female admitted secondary to subacute rib fracture and candidiasis Failure to thrive Improving with treatment of infection does not appear to be able to manage his in her present state May need snf facility at time of discharge PNA possible aspiration and coag negative/staph epi bacteremia likely pseudo- bacteremia in a patient who is immunocompromised on Humira Blood cultures on June 23 and June 26 negative to date. No recurrence of fever Discontinue Buchanan catheter. Continue to treat with vancomycin, cefepime and Levaquin. Switch to Augmentin upon discharge repeat chest x-ray in 6 weeks E. coli UTI On above antibiotic Candidiasis or Perineum Nystatin powder discontinue IV Diflucan Lethargy. Improving Metabolic encephalopathy. Improving Failure to thrive Secondary to UTI Treatment monitor for improvement Hypokalemia Replace as needed and monitor for recurrence Subacute rib fracture Report of care As needed pain treatment Glaucoma Continue baseline treatments Parkinson's disease Continue baseline treatments Physical Therapy Occupational Therapy Mitral valve prolapse History of TIA Lymphedema Osteoarthritis Cataract Depression No acute changes in these conditions Continue baseline treatments Elevated AST likely contributed by infection. Recent abdominal CT shows hepatic steatosis. Stable. Outpatient follow-up DVT prophylaxis Heparin - Time Spent with Patient Total time spent providing and/or coordinating discharge services: Greater than 30 minutes - Quality: VTE Deep Vein Thrombosis/Pulmonary Embolism Present on Admission: No Exam Vital signs: Vital Signs 06/26/18 12:00 06/26/18 15:30 06/26/18 20:00 Temperature 98.1 F 98.7 F 98.7 F Pulse Rate 106 H 104 H 102 H Respiratory Rate 18 18 20 Blood Pressure 112/60 114/59 L 116/63 Pulse Oximetry 95 97 98 06/27/18 00:00 Temperature 99.8 F H Pulse Rate 107 H Respiratory Rate 20 Blood Pressure 119/64 Pulse Oximetry 94 L Intake & Output 06/26/18 06/27/18 06/27/18 18:59 06:59 18:59 Intake Total 2033 / 2033 925 / 925 Output Total 600 / 600 800 / 800 Balance 1433 / 1433 125 / 125 Weight 82 kg Intake: IV 1313 / 1313 865 / 865 NS + KCl 20 mEq Inj 1,000 ML @ 850 / 850 352 / 352 42 mls/hr IV.CONT .[id number] GINGER Rx#:[id number] Maxipime Inj 2,000 MG In NS Inj 200 / 200 100 / 100 100 ML @ 200 mls/hr IV.SIG Q12H GINGER Rx#:[id number] Levaquin 750 mg Premix Inj 150 150 / 150 ML @ 100 mls/hr IV.SIG Q24H GINGER Rx#:[id number] Vancomycin Inj 1,250 MG In NS 263 / 263 263 / 263 Inj 250 ML @ 250 mls/hr IV.SIG Q12H GINGER Rx#:[id number] Oral 720 / 720 60 / 60 Output: Urine 600 / 600 800 / 800 Other: Date of Last Bowel Movement 06/23/18 06/23/18 # Bowel Movements 0 Narrative: GENERAL: NAD, A&Ox3 CARDIOVASCULAR: Regular rate and rhythm without murmurs, gallops, or rubs. RESPIRATORY: Breath sounds equal bilaterally. No accessory muscle use. GASTROINTESTINAL: Abdomen soft, non-tender, nondistended. MUSCULOSKELETAL: No cyanosis but with bilateral lower extremity pitting edema. SKIN: Warm and dry. NEURO: No focal neurological deficits. Results Procedures completed during hospitalization: none Labs on day of discharge: Labs from last 24 hours 06/27/18 06:00 Sodium 138 Potassium 3.9 Chloride 106 Carbon Dioxide 24.7 Anion Gap 7 BUN 10 Creatinine 0.57 Estimated GFR Greater than 89 Random Glucose 94 Calcium 9.1 Total Bilirubin 0.6 AST 94 H ALT 54 H Alkaline Phosphatase 76 Total Protein 6.6 Albumin 2.3 L Preliminary micro results at discharge 06/23/18 12:45 Aerobic Blood Culture - Preliminary Blood - Peripheral No growth in 3 days Anaerobic Blood Culture - Preliminary No growth in 3 days 06/22/18 03:55 Aerobic Blood Culture - Preliminary Blood - Peripheral No growth in 4 days - Impressions ITS Impressions Shoulder X-Ray 06/22/18 00:00 CONCLUSION: Degenerative changes. No acute fracture of the left shoulder is identified. Chest X-Ray 06/25/18 00:00 CONCLUSION: 1. Left perihilar patchiness consistent with possible pneumonia. 2. Small left pleural effusion. Discharge Plan - Discharge Disposition Patient Disposition: Discharge to SNF - Discharge Condition Condition: Stable - Discharge Order Discharge Orders: Discharge Order (Routine); Ordered 06/27/18 Ordered By: Beni Aquino - Physicians Team Primary Care Provider: Kathy Scales Attending Provider: Beni Aquino Other Providers: [facility],Agency ; [facility],Agency
[2018-06-27] MEDS ORDERED: Pharmacy Ordered Lab Info OTHER ONE (23:45)
[2018-06-27] MEDS: Mirtazapine 15 MG Tablet PO SCH (23:58)
[2018-06-28] MEDS: Carbidopa/Levodopa CR 50/200 MG Tablet PO SCH ×2 (00:01→08:59)
[2018-06-28] MEDS: Polyethylene Glycol 3350 17 GM Packet PO SCH ×2 (00:02→09:00)
[2018-06-28] MEDS: Nystatin 100,000 UNITS/GM Powder 15 GM Bottle TOPICAL SCH ×2 (00:09→09:00)
[2018-06-28] MEDS: Vancomycin Inj 1,250 MG in Sodium Chlor 0.9% Inj 250 ML IV.SIG SCH (00:16)
[2018-06-28 05:01] LABS: Glomerular Filtration Rate Greater Than 89 mL/min (>89)
[2018-06-28] MEDS: Levothyroxine 75 MCG Tablet PO SCH (05:33)
[2018-06-28] MEDS: Tolterodine Tartrate LA 2 MG Capsule PO SCH (08:56)
[2018-06-28] MEDS: Docusate Sodium 100 MG Capsule PO SCH (08:59)
[2018-06-28] MEDS: Furosemide 40 MG Tablet PO SCH (08:59)
[2018-06-28] MEDS: Multivitamin/Minerals Therapeutic Tablet PO SCH (09:00)
[2018-06-28] MEDS: Ezetimibe 10 MG Tablet PO SCH (09:00)
[2018-06-28] MEDS: Lactobacillus Acidophilus/L. Spores Tablet PO SCH (09:00)
[2018-06-28 09:12] VITALS: PULSE 97
[2018-06-28 09:18] VITALS: BP 127/74; RESP 16; TEMP 98.1; O2SAT 94
[2018-06-28] MEDS: Heparin - SQ 10,000 UNITS/ML Vial SQ SCH (09:36)
[2018-06-28] MEDS: Psyllium Husk SF 3.4 GM in 5.8 GM Packet PO SCH (09:37)
--- NOTE | 2018-06-28 10:55 | P.DS ---
Date of admission: 06/22/18 05:56 Primary care physician: Kathy Scales MD Brief History from admission: Mrs. Ely is an 82-year-old female. She came in the hospital overnight secondary to worsening fatigue and pain. She feels her is not able to continue to take care of her in his present state which she feels has an element of dementia. Recently she had a rib fracture and has pain from this. Findings in the ER are of a low-grade fever, urinary tract infection, perineal candidiasis, and early sacral decubitus ulcer grade 1 (no open skin). She would benefit from a prison facility if that is an option. DS: Diagnosis - Discharge Diagnosis (1) UTI (urinary tract infection) Status: Acute (2) Candidiasis of female genitalia Status: Acute (3) Rib fracture Status: Acute (4) Failure to thrive Status: Acute DS: Medications - Discharge Medications Prescriptions: acidophilus-sporogenes [Acidophilus Ex Str (L. sporog)] 1 tab PO TID #30 tab amoxicillin-pot clavulanate [Augmentin] 1 tab PO Q12H #10 tab nystatin [Nystop] 1 applicatio TOPICAL QID #1 g DS: Summary Hospital Course: 82-year-old female admitted secondary to subacute rib fracture and candidiasis Failure to thrive Improving with treatment of infection does not appear to be able to manage his in her present state May need prison facility at time of discharge PNA possible aspiration and coag negative/staph epi bacteremia likely pseudo- bacteremia in a patient who is immunocompromised on Humira Blood cultures on June 23 and June 26 negative to date. No recurrence of fever Discontinue Buchanan catheter. Continue to treat with vancomycin, cefepime and Levaquin. Switch to Augmentin upon discharge repeat chest x-ray in 6 weeks E. coli UTI On above antibiotic Candidiasis or Perineum Nystatin powder discontinue IV Diflucan Lethargy. Improving Metabolic encephalopathy. Improving Failure to thrive Secondary to UTI Treatment monitor for improvement Hypokalemia Replace as needed and monitor for recurrence Subacute rib fracture Report of care As needed pain treatment Glaucoma Continue baseline treatments Parkinson's disease Continue baseline treatments Physical Therapy Occupational Therapy Mitral valve prolapse History of TIA Lymphedema Osteoarthritis Cataract Depression No acute changes in these conditions Continue baseline treatments Elevated AST likely contributed by infection. Recent abdominal CT shows hepatic steatosis. Stable. Outpatient follow-up DVT prophylaxis Heparin - Time Spent with Patient Total time spent providing and/or coordinating discharge services: Greater than 30 minutes - Quality: VTE Deep Vein Thrombosis/Pulmonary Embolism Present on Admission: No Exam Vital signs: Vital Signs 06/27/18 12:00 06/27/18 16:00 06/27/18 20:00 Temperature 96.5 F L 98.7 F 98.3 F Pulse Rate 94 H 100 H 101 H Respiratory Rate 20 20 18 Blood Pressure 118/68 110/53 L 127/62 Pulse Oximetry 95 94 L 94 L 06/28/18 00:00 06/28/18 08:00 06/28/18 09:11 Temperature 97.3 F L 98.1 F Pulse Rate 42 L 103 H 97 H Respiratory Rate 20 16 Blood Pressure 127/58 L 127/74 Pulse Oximetry 95 94 L Intake & Output 06/27/18 06/28/18 06/28/18 18:59 06:59 18:59 Intake Total 1024 / 1024 676 / 676 200 / 200 Output Total 950 / 950 Balance 74 / 74 676 / 676 200 / 200 Weight 78 kg Intake: IV 704 / 704 626 / 626 200 / 200 NS + KCl 20 mEq Inj 1,000 ML @ 704 / 704 0 / 0 200 / 200 42 mls/hr IV.CONT .[id number] GINGER Rx#:[id number] Maxipime Inj 2,000 MG In NS Inj 100 / 100 100 ML @ 200 mls/hr IV.SIG Q12H GINGER Rx#:[id number] Vancomycin Inj 1,250 MG In NS 526 / 526 Inj 250 ML @ 250 mls/hr IV.SIG Q12H GINGER Rx#:[id number] Oral 320 / 320 50 / 50 Output: Urine 950 / 950 Other: # Incontinent Voids 2 Date of Last Bowel Movement 06/27/18 06/27/18 06/28/18 # Bowel Movements 2 Narrative: GENERAL: NAD, A&Ox3 CARDIOVASCULAR: Regular rate and rhythm without murmurs, gallops, or rubs. RESPIRATORY: Breath sounds equal bilaterally. No accessory muscle use. GASTROINTESTINAL: Abdomen soft, non-tender, nondistended. MUSCULOSKELETAL: No cyanosis but with bilateral lower extremity pitting edema. SKIN: Warm and dry. NEURO: No focal neurological deficits. Results Procedures completed during hospitalization: none Labs on day of discharge: Labs from last 24 hours 06/28/18 06/28/18 00:15 00:15 Creatinine 0.55 Estimated GFR Greater than 89 Vancomycin Trough Pending Preliminary micro results at discharge 06/26/18 09:05 Aerobic Blood Culture - Preliminary Blood - Peripheral No growth in 1 day Anaerobic Blood Culture - Preliminary No growth in 1 day 06/23/18 12:45 Aerobic Blood Culture - Preliminary Blood - Peripheral No growth in 4 days Anaerobic Blood Culture - Preliminary No growth in 4 days - Impressions ITS Impressions Shoulder X-Ray 06/22/18 00:00 CONCLUSION: Degenerative changes. No acute fracture of the left shoulder is identified. Chest X-Ray 06/25/18 00:00 CONCLUSION: 1. Left perihilar patchiness consistent with possible pneumonia. 2. Small left pleural effusion. Discharge Plan - Discharge Disposition Patient Disposition: Discharge to SNF - Discharge Condition Condition: Stable - Discharge Order Discharge Orders: Discharge Order (Routine); Ordered 06/27/18 Ordered By: Beni Aquino - Physicians Team Primary Care Provider: Kathy Scales Attending Provider: Beni Aquino Other Providers: [facility],Agency ; [facility],Agency
== END 2018-06-28 10:50 ==
LOC: PHED 01:26 → PHEDA 05:56 → PH3 07:10
PROVIDERS: ADMIT Internal Medicine; ATTEND Internal Medicine